=== PATIENT | male | born 1985 | race Caucasian/White ===

== ENCOUNTER 2018-11-02 09:47 | Inpatient (IN) ==
[2018-11-02] MEDS ORDERED: GI Cocktail 40 ML EACH PO ONE (10:14)
[2018-11-02 10:31] LABS: Basophils # 0.1 K/mcL (0.0-0.2); Basophils % 0.5 %; Eosinophils # 0.3 K/mcL (0.0-0.6); Eosinophils % 2.6 %; Hematocrit 48.3 % (37.5-50.1); Hemoglobin 17.7 g/dL (12.9-16.9); Immature Granulocytes % 0.7 % (0-4); Lymphocytes # 2.4 K/mcL (0.6-4.6); Lymphocytes % 24.1 %; Mean Corpuscular HGB Conc 36.6 g/dL (31.6-35.5); Mean Corpuscular Hemoglobin 32.8 pg (28.0-33.3); Mean Corpuscular Volume 89.6 fL (83.0-100.0); Mean Platelet Volume 9.3 fL (9.4-12.4); Monocytes # 0.8 K/mcL (0.0-1.3); Neutrophils # 6.4 K/mcL (1.6-8.9); Platelet Count 306 K/mcL (140-400); Red Blood Count 5.39 M/mcL (4.19-5.50); Red Cell Distribution Width 11.2 % (11.5-14.5); Segmented Neutrophils % 64.1 %
[2018-11-02] MEDS ORDERED: 0.9 % Sodium Chloride 1,000 ML ONE (10:42)
[2018-11-02] MEDS ORDERED: 0.9 % Sodium Chloride 1,000 ML IVC ONE ×2 (11:04→11:13)
[2018-11-02] MEDS ORDERED: Ondansetron 4 MG/2 ML VIAL IVP ONE (11:04)
[2018-11-02 11:11] LABS: Alanine Aminotransferase 28 Units/L (7-52); Albumin 4.2 g/dL (3.5-5.7); Albumin/Globulin Ratio 1.9 (1.1-2.2); Alkaline Phosphatase 66 Units/L (34-104); Aspartate Amino Transferase 30 Units/L (13-39); BUN/Creatinine Ratio 10 (6-26); Bilirubin,Direct 0.1 mg/dL (0.0-0.2); Bilirubin,Indirect 0.6 mg/dL (0.0-1.2); Bilirubin,Total 0.7 mg/dL (0.3-1.0); Blood Urea Nitrogen 7 mg/dL (6-20); Calcium 9.1 mg/dL (8.6-10.3); Carbon Dioxide 26 mEq/L (23-29); Chloride 102 mEq/L (98-107); Globulin 2.2 g/dL (2.4-3.5); Glucose 163 mg/dL (70-105); Lipase 1111 Units/L (11-82); Osmolality,Calculated 296 (280-300); Potassium 3.6 mEq/L (3.5-5.1); Sodium 142 mEq/L (136-145); Total Protein 6.4 g/dL (6.4-8.9); eGFR For African Americans > 60 (> 60); eGFR For Non-African Americans > 60 (> 60)
[2018-11-02] MEDS ORDERED: *HR* FentaNYL (PF) 100 MCG/2 ML VIAL IVP ONE (11:12)
--- NOTE | 2018-11-02 11:23 | Emergency Department Note ---
Disposition Clinical Impression: Pancreatitis Qualifiers: Chronicity: acute Pancreatitis type: alcohol induced Acute pancreatitis complication: unspecified Qualified Code(s): K85.20 - Alcohol induced acute pancreatitis without necrosis or infection Disposition: Admitted As Inpatient Condition: Fair Time of Disposition: 11:14 Abdominal Pain HPI - General Chief Complaint: ED Abdominal Pain Stated Complaint: Ulcer pain Time Seen by Provider: 11/02/18 09:53 Source: patient Limitations: no limitations Nursing Notes Reviewed: Yes Vital Signs Reviewed: Yes - History of Present Illness HPI Narrative: 32-year-old male presents emergency Department with concerns of epigastric abdominal pain. Patient drink a large amount of alcohol last night and woke up with severe abdominal pain. He denies fever, chills, hematochezia, melena, hematemesis. He has a long history of gastric ulcers in the past. He denies history of pain with by mouth intake over the past few days. Pain Scale: 6 - Related Data Home Medications Medication Instructions Recorded Confirmed Allopurinol [Zyloprim 100 MG] 100 mg PO DAILY 11/02/18 11/02/18 Escitalopram [Lexapro] 20 mg PO DAILY 11/02/18 11/02/18 Loperamide HCl [Imodium A-D] 2 mg PO QID PRN 11/02/18 11/02/18 Multivit-Min/Iron/Folic Acid/K 1 each PO DAILY 11/02/18 11/02/18 [Adults Multivitamin Tablet] Previous Rx's Medication Instructions Recorded Lansoprazole [Prevacid] 30 mg PO BIDAC #60 capsule. 11/01/16 Ondansetron ODT [Zofran ODT] 4 mg SL Q4HR PRN #12 tab.rapdis 10/01/18 Sucralfate [Carafate] 1 gm PO QIDAC #60 tablet 10/01/18 Allergies Allergy/AdvReac Type Severity Reaction Status Date / Time No Known Allergies Allergy Verified 10/01/18 15:45 All systems ED: reviewed and negative except as stated. Review of Systems: As Per HPI Abdominal Pain PMH - Past Medical History Medical history: Reports: no medical history Male Surgical History: Reports: no surgical history Psychiatric history: Reports: anxiety, depression, PTSD - Social History Smoking status: Current every day smoker Alcohol use: Reports: heavy Drug use: Reports: none Physical Exam General: Alert and in no acute distress Skin: Warm, dry, intact Head: Normocephalic and atraumatic Neck: Supple, trachea midline and no tenderness Cardiovascular: RRR, no murmur, normal perfusion Respiratory: CTAB, no wheezing, cough, or respiratory distress Musculoskeletal: Normal strength, no tenderness, swelling or deformity GI: Soft, tender to palpation of the epigastrium moderate guarding without evidence of rebound or rigidity. Neuro: A&O to person, place, time and situation. No focal deficits noted on exam Psychiatric: cooperative and appropriate mood and affect. - General Limitations: no limitations General appearance: alert, in no apparent distress Course Vital Signs Temperature 98.1 F 11/02/18 09:49 Pulse Rate 88 11/02/18 09:49 Respiratory Rate 18 11/02/18 09:49 Blood Pressure 136/91 11/02/18 09:49 O2 Sat by Pulse Oximetry 99 11/02/18 09:49 Temperature 98.9 F 11/02/18 12:36 Pulse Rate 70 11/02/18 12:36 Respiratory Rate 16 11/02/18 12:36 Blood Pressure 153/98 11/02/18 12:36 O2 Sat by Pulse Oximetry 98 11/02/18 12:36 Oxygen Delivery Oxygen Delivery Room Air Abdominal Pain - MDM Narrative Medical decision making narrative: Patient has an elevated lipase. He will be admitted for further care and evaluation. He is given IV fluids and pain medication emergency department along with antiemetics. - Medical Records Medical records reviewed: Yes I reviewed the patient's medical records. - Lab Data Lab results reviewed: Yes I reviewed the patient's lab results. Result diagrams: 11/02/18 10:12 11/02/18 10:12 Lab Results 11/02/18 11/02/18 Range/Units 10:12 10:12 WBC 10.0 (4.3-11.1) K/mcL RBC 5.39 (4.19-5.50) M/mcL Hgb 17.7 H (12.9-16.9) g/dL Hct 48.3 (37.5-50.1) % MCV 89.6 (83.0-100.0) fL MCH 32.8 (28.0-33.3) pg MCHC 36.6 H (31.6-35.5) g/dL RDW 11.2 L (11.5-14.5) % Plt Count 306 (140-400) K/mcL MPV 9.3 L (9.4-12.4) fL Immature Gran % 0.7 (0-4) % Seg Neutrophils % 64.1 % Lymphocytes % 24.1 % Monocytes % 8.0 % Eosinophils % 2.6 % Basophils % 0.5 % Neutrophils # 6.4 (1.6-8.9) K/mcL Lymphocytes # 2.4 (0.6-4.6) K/mcL Monocytes # 0.8 (0.0-1.3) K/mcL Eosinophils # 0.3 (0.0-0.6) K/mcL Basophils # 0.1 (0.0-0.2) K/mcL Sodium 142 (136-145) mEq/L Potassium 3.6 (3.5-5.1) mEq/L Chloride 102 (98-107) mEq/L Carbon Dioxide 26 (23-29) mEq/L BUN 7 (6-20) mg/dL Creatinine 0.73 (0.70-1.30) mg/dL Est GFR ( Amer) > 60 (> 60) Est GFR (Non-Af Amer) > 60 (> 60) BUN/Creatinine Ratio 10 (6-26) Glucose 163 H (70-105) mg/dL Calculated Osmolality 296 (280-300) Calcium 9.1 (8.6-10.3) mg/dL Total Bilirubin 0.7 (0.3-1.0) mg/dL Direct Bilirubin 0.1 (0.0-0.2) mg/dL Indirect Bilirubin 0.6 (0.0-1.2) mg/dL AST 30 (13-39) Units/L ALT 28 (7-52) Units/L Alkaline Phosphatase 66 (34-104) Units/L Serum Total Protein 6.4 (6.4-8.9) g/dL Albumin 4.2 (3.5-5.7) g/dL Globulin 2.2 L (2.4-3.5) g/dL Albumin/Globulin Ratio 1.9 (1.1-2.2) Lipase 1111 H (11-82) Units/L - Radiology Data Radiology results reviewed: Yes I reviewed the patient's radiology results.
[2018-11-02 12:33] LABS: Bilirubin,Urine Negative (Negative); Blood,Urine Negative (Negative); Clarity,Urine Clear (Clear); Color,Urine Yellow (Yellow); Glucose,Urine (UA) Normal (Normal); Ketones,Urine Negative (Negative); Leukocyte Esterase,Urine Negative (Negative); Nitrite,Urine Negative (Negative); Protein,Urine Negative (Neg-Trace); Specific Gravity,Urine 1.017 (1.010-1.025); Urobilinogen,Urine Normal (Normal)
--- NOTE | 2018-11-02 12:43 | Internal Med History&Physical ---
Date of Encounter: 11/02/18 Time of Encounter: 08:00 Internal Medicine - H&P: HPI Chief complaint: abdominal pain History of present illness: 32-year-old male presents emergency Department with history of alcohol abuse presented to the hospital with epigastric abdominal pain that started after he drank a large amount of vodka. He denies fever, chills, nausea, vomiting, diarrhea hematochezia, melena, hematemesis, chest pain, shortness of breath, palpitation and lower extremity edema. The patient was evaluated by the ER staff and laboratory data revealed mild deviated elevated lipase, he was admitted for further evaluation and management of acute pancreatitis. Past Med Surg Social Fam HX - Past Medical History Medical history: no medical history Additional medical history: Gout Psychiatric history: anxiety, depression, PTSD - Social History Smoking Status: Current every day smoker Smokeless Tobacco Status: No Alcohol use: heavy Drug use: none Internal Medicine - H&P: Meds Lansoprazole [Prevacid] 30 mg PO BIDAC #60 capsule. 11/01/16 [Rx] Ondansetron ODT [Zofran ODT] 4 mg SL Q4HR PRN #12 tab.rapdis 10/01/18 [Rx] Sucralfate [Carafate] 1 gm PO QIDAC #60 tablet 10/01/18 [Rx] Allopurinol [Zyloprim 100 MG] 100 mg PO DAILY 11/02/18 [History] Escitalopram [Lexapro] 20 mg PO DAILY 11/02/18 [History] Loperamide HCl [Imodium A-D] 2 mg PO QID PRN 11/02/18 [History] Multivit-Min/Iron/Folic Acid/K [Adults Multivitamin Tablet] 1 each PO DAILY 11/02/18 [History] Allergy/AdvReac Type Severity Reaction Status Date / Time No Known Allergies Allergy Verified 10/01/18 15:45 All Systems PM: A 10-system review of systems was performed and is negative for pertinent findings except as documented above in the HPI. - Constitutional Vitals: Temp Pulse Resp BP Pulse Ox 98.9 F 70 16 153/98 98 11/02/18 12:36 11/02/18 12:36 11/02/18 12:36 11/02/18 12:36 11/02/18 12:36 General appearance: Present: A&O X 3 - Head Head exam: Present: atraumatic, normocephalic - Neck Neck exam general surgery: Present: supple, trachea midline. Absent: lymphadenopathy - Respiratory Respiratory exam: Present: CTAB. Absent: accessory muscle use, rales, rhonchi, wheezes - Cardiovascular Cardiovascular exam: Present: RRR, +S1, +S2. Absent: diastolic murmur, gallop, rubs, systolic murmur - GI/Abdominal GI/Abdominal exam: Present: normal bowel sounds, soft, tenderness, no peritoneal signs. Absent: distended - Extremities Exam Extremities exam: Present: warm, radial pulses palpable and symmetrical. Absent: calf tenderness, cyanotic, pedal edema Internal Med - H&P Results - Labs CBC & Chem 7: 11/02/18 10:12 11/02/18 10:12 Labs: Short CBC 11/02/18 Range/Units 10:12 WBC 10.0 (4.3-11.1) K/mcL Hgb 17.7 H (12.9-16.9) g/dL Hct 48.3 (37.5-50.1) % Plt Count 306 (140-400) K/mcL Neutrophils # 6.4 (1.6-8.9) K/mcL BMP 11/02/18 10:12 Sodium 142 Potassium 3.6 Chloride 102 Carbon Dioxide 26 BUN 7 Creatinine 0.73 Glucose 163 H Calcium 9.1 Liver Function 11/02/18 Range/Units 10:12 Total Bilirubin 0.7 (0.3-1.0) mg/dL Direct Bilirubin 0.1 (0.0-0.2) mg/dL AST 30 (13-39) Units/L ALT 28 (7-52) Units/L Alkaline Phosphatase 66 (34-104) Units/L Albumin 4.2 (3.5-5.7) g/dL Urine 11/02/18 Range/Units 12:14 Urine Color Yellow (Yellow) Urine Clarity Clear (Clear) Urine pH 8.0 (5.0-8.0) pH Units Ur Specific [place] 1.017 (1.010-1.025) Urine Protein Negative (Neg-Trace) mg/dL Urine Glucose (UA) Normal (Normal) mg/dL - Impressions ITS Impressions Chest X-Ray 11/02/18 10:14 IMPRESSION: No acute cardiopulmonary process. D/ / 11/02/2018 11:16:39 Chad Cobb MD / [facility] Interpreting Provider: Chad Cobb MD - Assessment and Plan (1) Pancreatitis Current Visit: Yes Status: Acute Assessment and plan: the patient presented with severe abdominal pain after consuming a large amount of blood, last night, laboratory data is evidence for increased lipase most likely secondary to acute Pancreatitis PLAN: - NPO apart from meds - IVF - CBCD, BMP in AM - Zofran (ondansetron) PRN - CT scan of the abdomen Qualifiers: Chronicity: acute Pancreatitis type: alcohol induced Acute pancreatitis complication: unspecified Qualified Code(s): K85.20 - Alcohol induced acute pancreatitis without necrosis or infection (2) Alcohol abuse Current Visit: Yes Status: Acute Assessment and plan: we'll start the patient on CIWA protocol. - Time Spent With Patient Total time spent is greater than 50% in coordination of care (as documented) at patient's floor/unit and/or counseling patient:
[2018-11-02] MEDS ORDERED: Ondansetron 4 MG/2 ML VIAL IVP PRN (13:07)
[2018-11-02] MEDS ORDERED: traMADol 50 MG TABLET PO PRN (13:07)
[2018-11-02] MEDS ORDERED: Acetaminophen 325 MG TABLET PO PRN (13:07)
[2018-11-02] MEDS ORDERED: Naloxone 0.4 MG/ML INJ IVP PRN (13:07)
[2018-11-02] MEDS: 0.9 % Sodium Chloride 1,000 ML IVC SCH ×2 (13:20→20:42)
[2018-11-02] MEDS: Pantoprazole 40 MG VIAL IVP SCH (17:29)
[2018-11-02] MEDS ORDERED: *HR* LORazepam 2 MG/ML VIAL IVP PRN ×3 (17:39)
[2018-11-02] MEDS: *HR* OxyCODONE Immed Rel 5 MG TABLET PO PRN (20:40)
[2018-11-02] MEDS: Sucralfate 1 GM TABLET PO SCH (22:16)
[2018-11-03] MEDS: *HR* OxyCODONE Immed Rel 5 MG TABLET PO PRN (01:31)
[2018-11-03] MEDS ORDERED: Isovue-370 500 ML BOTTLE IVP ONE (05:24)
[2018-11-03] MEDS: Pantoprazole 40 MG VIAL IVP SCH ×2 (06:49→16:57)
[2018-11-03 06:58] LABS: Basophils # 0.1 K/mcL (0.0-0.2); Basophils % 0.3 %; Eosinophils # 0.2 K/mcL (0.0-0.6); Eosinophils % 1.2 %; Hematocrit 44.2 % (37.5-50.1); Hemoglobin 15.8 g/dL (12.9-16.9); Immature Granulocytes % 0.4 % (0-4); Lymphocytes # 2.4 K/mcL (0.6-4.6); Lymphocytes % 16.6 %; Mean Corpuscular HGB Conc 35.7 g/dL (31.6-35.5); Mean Corpuscular Hemoglobin 32.4 pg (28.0-33.3); Mean Corpuscular Volume 90.6 fL (83.0-100.0); Mean Platelet Volume 9.7 fL (9.4-12.4); Monocytes # 1.3 K/mcL (0.0-1.3); Monocytes % 9.4 %; Neutrophils # 10.3 K/mcL (1.6-8.9); Platelet Count 277 K/mcL (140-400); Red Blood Count 4.88 M/mcL (4.19-5.50); Red Cell Distribution Width 11.2 % (11.5-14.5); Segmented Neutrophils % 72.1 %; White Blood Count 14.3 K/mcL (4.3-11.1)
[2018-11-03 07:04] LABS: INR 1.1; Prothrombin Time 12.6 Seconds (9.4-12.1)
[2018-11-03 07:07] LABS: Activated Partial Thrombo Time 28.9 Seconds (26.0-36.0)
[2018-11-03 07:20] LABS: Alanine Aminotransferase 20 Units/L (7-52); Albumin 3.9 g/dL (3.5-5.7); Albumin/Globulin Ratio 1.9 (1.1-2.2); Alkaline Phosphatase 59 Units/L (34-104); Amylase 73 Units/L (29-103); Aspartate Amino Transferase 19 Units/L (13-39); BUN/Creatinine Ratio 9 (6-26); Bilirubin,Total 0.9 mg/dL (0.3-1.0); Blood Urea Nitrogen 6 mg/dL (6-20); Calcium 8.7 mg/dL (8.6-10.3); Carbon Dioxide 26 mEq/L (23-29); Chloride 101 mEq/L (98-107); Chol/HDL Ratio 3.7 (0-4.9); Cholesterol 121 mg/dL (< 200); Globulin 2.1 g/dL (2.4-3.5); Glucose 102 mg/dL (70-105); HDL Cholesterol 33 mg/dL (40-59); LDL Cholesterol,Calculated 35 mg/dL (0-99); Lipase 287 Units/L (11-82); Magnesium 1.4 mg/dL (1.6-2.6); Osmolality,Calculated 286 (280-300); Phosphorous 2.9 mg/dL (2.7-4.5); Potassium 3.3 mEq/L (3.5-5.1); Sodium 139 mEq/L (136-145); Triglycerides 264 mg/dL (< 150); eGFR For African Americans > 60 (> 60); eGFR For Non-African Americans > 60 (> 60)
[2018-11-03 07:31] LABS: Estimated Average Glucose 97 mg/dl
[2018-11-03] MEDS: Thiamine (B-1) 100 MG TABLET PO SCH (08:02)
[2018-11-03] MEDS: Multivit/Ca/Min/Fe/FA 1 TAB TABLET PO SCH (08:02)
[2018-11-03] MEDS: Sucralfate 1 GM TABLET PO SCH ×4 (08:02→21:10)
[2018-11-03] MEDS: Vitamin B Complex/Vit C/Vit E 1 EACH TABLET PO SCH (08:02)
[2018-11-03] MEDS: Folic Acid 1 MG TABLET PO SCH (08:02)
--- NOTE | 2018-11-03 09:14 | Internal Med Progress Note ---
<Jaron Shanks - Last Filed: 11/03/18 15:52> Hospitalist Progress Note - Encounter Date of Encounter: 11/03/18 - Exam Vitals: Temp Pulse Resp BP Pulse Ox 98.1 F 73 15 133/83 98 11/03/18 14:49 11/03/18 14:49 11/03/18 14:49 11/03/18 14:49 11/03/18 14:49 - Assessment and Plan (1) Pancreatitis Current Visit: Yes Status: Acute (2) Alcohol abuse Current Visit: Yes Status: Acute (3) Tobacco abuse Current Visit: Yes Status: Chronic - Time Spent with Patient Total time spent is greater than 50% in coordination of care (as documented) at patient's floor/unit and/or counseling patient: Internal Medicine: Result - Labs CBC & Chem 7: 11/03/18 05:37 11/03/18 05:37 Labs: Short CBC 11/03/18 Range/Units 05:37 WBC 14.3 H (4.3-11.1) K/mcL Hgb 15.8 D (12.9-16.9) g/dL Hct 44.2 (37.5-50.1) % Plt Count 277 (140-400) K/mcL Neutrophils # 10.3 H (1.6-8.9) K/mcL BMP 11/03/18 05:37 Sodium 139 Potassium 3.3 L Chloride 101 Carbon Dioxide 26 BUN 6 Creatinine 0.68 L Glucose 102 Calcium 8.7 Liver Function 11/03/18 Range/Units 05:37 Total Bilirubin 0.9 (0.3-1.0) mg/dL AST 19 (13-39) Units/L ALT 20 (7-52) Units/L Alkaline Phosphatase 59 (34-104) Units/L Albumin 3.9 (3.5-5.7) g/dL - ABG Interpretation ABG results: PT/INR, D-dimer PT 12.6 Seconds (9.4-12.1) H 11/03/18 05:37 - Impressions Impressions Abdomen CT 11/03/18 09:30 IMPRESSION: CT findings of acute pancreatitis. Fatty liver. Right renal cortical cyst. D/ / 11/03/2018 09:48:41 Martin Lomax MD / [facility] Interpreting Provider: Martin Lomax MD Consult Discharge Plan - Plan [facility]errals: [facility] [Primary Care Provider[facility] - - Attending Attestation I examined this patient and my medical decision-making was reviewed with the Resident Physician 11/03/18. I agree with the documented findings, disposition and treatment plan as described except to the extent set forth below. Mr Vallejo is currently hospitalized for acute pancreatitis. He remains moderate to high risk due to potential for worsening clinical status. Mr Vallejo is tolerating liquid diet. He has minimal pain at this time. No fever or chills. No nausea or vomiting at this time. Exam - no tachycardia. Lungs clear. Minimal abdominal tenderness. Plan continue pain control. Advance diet. CIWA. Alcohol cessation. <Radha Vigil I - Last Filed: 11/03/18 18:51> Hospitalist Progress Note - Encounter Date of Encounter: 11/03/18 Time of Encounter: 08:35 - Subjective Interval History: 32-year-old male presents emergency Department with history of alcohol abuse presented to the hospital with epigastric abdominal pain that started after he drank a large amount of vodka. he was admitted for further evaluation and man agement of acute pancreatitis due to high lipase which was 1111 , CXR was negative and he was sent for CT which later shows pancreatic edema and peripancreatic inflamation today the patient feels better He denies abdominal pain , fever, chills, nausea, vomiting, diarrhea chest pain, shortness of breath, palpitation and lower extremity edema. - Exam Vitals: Temp Pulse Resp BP Pulse Ox 98.2 F 80 15 151/92 98 11/03/18 07:02 11/03/18 07:02 11/03/18 07:02 11/03/18 07:02 11/03/18 07:02 Exam: Gen: Vitals noted. No acute distress. Eyes: anicteric sclerae, moist conjunctivae HEENT: Atraumatic; oropharynx clear with moist mucous membranes and no mucosal ulcerations Neck: Trachea midline; supple Cardiac: RRR, no murmur, +S1/S2 Pulmonary:, no wheezes, rales or rhonchi, equal chest expansion Abdomen: soft, nontender, no guarding. No masses or hepatosplenomegaly MSK: ROM intact, no joint swelling noted Extremities: no BLE edema, nontender calf, no cyanosis or clubbing Skin: Normal temperature, turgor and texture; no rash, ulcers or subcutaneous no dules Neuro: moves all extremities, no focal deficits. Psych: Appropriate mood and behavior. A&Ox3 - Assessment and Plan (1) Pancreatitis Current Visit: Yes Status: Acute Assessment and Plan: Assessment and plan: the patient presented with severe abdominal pain after consuming a large amount of blood, last night, laboratory data is evidence for increased lipase to 1111 most likely secondary to acute Pancreatitis , CT showes pancreatic edema and peripancreatic inflamation , patient is feeling well today, we stoped IVF and started him om oral liquid diet PLAN: - start liquid diet as tolerated , change to IVF if deteriorated - Zofran (ondansetron) PRN - pantoprazole 40 mg IVP -check BMP tomorow morning (2) Hypokalemia Current Visit: Yes Status: Acute Assessment and Plan: potassium level was 3.3 , we gave 40 meq PO once check BMP tomorrow again potline monitor due to NE risk (3) Hypomagnesemia Current Visit: Yes Status: Acute Assessment and Plan: -Mg level was 1.4 , we started him on 4gm -repeat Mg level tomorrow -look for cardiac abnormality and neurological symptoms (4) Alcohol abuse Current Visit: Yes Status: Acute Assessment and Plan: patient was put on CIWA protocol to avoid seizure (CIWA score is 0) DVT Prophylaxis: heparin 5000 SQ - Time Spent with Patient Total time spent is greater than 50% in coordination of care (as documented) at patient's floor/unit and/or counseling patient: Internal Medicine: Result - Labs CBC & Chem 7: 11/03/18 05:37 11/03/18 05:37 Labs: Short CBC 11/02/18 11/03/18 Range/Units 10:12 05:37 WBC 10.0 14.3 H (4.3-11.1) K/mcL Hgb 17.7 H 15.8 D (12.9-16.9) g/dL Hct 48.3 44.2 (37.5-50.1) % Plt Count 306 277 (140-400) K/mcL Neutrophils # 6.4 10.3 H (1.6-8.9) K/mcL BMP 11/02/18 11/03/18 10:12 05:37 Sodium 142 139 Potassium 3.6 3.3 L Chloride 102 101 Carbon Dioxide 26 26 BUN 7 6 Creatinine 0.73 0.68 L Glucose 163 H 102 Calcium 9.1 8.7 Liver Function 11/02/18 11/03/18 Range/Units 10:12 05:37 Total Bilirubin 0.7 0.9 (0.3-1.0) mg/dL Direct Bilirubin 0.1 (0.0-0.2) mg/dL AST 30 19 (13-39) Units/L ALT 28 20 (7-52) Units/L Alkaline Phosphatase 66 59 (34-104) Units/L Albumin 4.2 3.9 (3.5-5.7) g/dL Urine 11/02/18 Range/Units 12:14 Urine Color Yellow (Yellow) Urine Clarity Clear (Clear) Urine pH 8.0 (5.0-8.0) pH Units Ur Specific [place] 1.017 (1.010-1.025) Urine Protein Negative (Neg-Trace) mg/dL Urine Glucose (UA) Normal (Normal) mg/dL - ABG Interpretation ABG results: PT/INR, D-dimer PT 12.6 Seconds (9.4-12.1) H 11/03/18 05:37 - Impressions Impressions Chest X-Ray 11/02/18 10:14 IMPRESSION: No acute cardiopulmonary process. D/ / 11/02/2018 11:16:39 Chad Cobb MD / [facility] Interpreting Provider: Chda Cobb MD <Jaron Shanks A - Last Filed: 11/03/18 15:52> (1) Pancreatitis Qualifiers: Chronicity: acute Pancreatitis type: alcohol induced Acute pancreatitis complication: no infection or necrosis Qualified Code(s): K85.20 - Alcohol induced acute pancreatitis without necrosis or infection <Radha Vigil I - Last Filed: 11/03/18 18:51> (1) Pancreatitis Qualifiers: Chronicity: acute Pancreatitis type: alcohol induced Acute pancreatitis complication: no infection or necrosis Qualified Code(s): K85.20 - Alcohol induced acute pancreatitis without necrosis or infection
[2018-11-03] MEDS ORDERED: Magnesium Oxide 400 MG TABLET PO SCH (10:45)
[2018-11-03] MEDS: *HR* Heparin 5,000 UNIT/ML VIAL SQ SCH ×2 (12:55→21:10)
[2018-11-04] MEDS ORDERED: Nicotine 2 MG GUM BC PRN (01:43)
[2018-11-04] MEDS: *HR* Heparin 5,000 UNIT/ML VIAL SQ SCH ×2 (05:54→15:13)
[2018-11-04] MEDS: Pantoprazole 40 MG VIAL IVP SCH (05:54)
[2018-11-04] MEDS: Vitamin B Complex/Vit C/Vit E 1 EACH TABLET PO SCH (08:05)
[2018-11-04] MEDS: Folic Acid 1 MG TABLET PO SCH (08:05)
[2018-11-04] MEDS: Thiamine (B-1) 100 MG TABLET PO SCH (08:05)
[2018-11-04] MEDS: Multivit/Ca/Min/Fe/FA 1 TAB TABLET PO SCH (08:05)
[2018-11-04] MEDS: Sucralfate 1 GM TABLET PO SCH ×2 (08:05→11:33)
[2018-11-04 11:21] LABS: Basophils # 0.1 K/mcL (0.0-0.2); Basophils % 0.7 %; Eosinophils # 0.5 K/mcL (0.0-0.6); Eosinophils % 6.8 %; Hematocrit 43.8 % (37.5-50.1); Hemoglobin 15.7 g/dL (12.9-16.9); Immature Granulocytes % 0.3 % (0-4); Lymphocytes % 27.8 %; Mean Corpuscular HGB Conc 35.8 g/dL (31.6-35.5); Mean Corpuscular Hemoglobin 33.1 pg (28.0-33.3); Mean Corpuscular Volume 92.2 fL (83.0-100.0); Mean Platelet Volume 9.4 fL (9.4-12.4); Monocytes # 0.6 K/mcL (0.0-1.3); Monocytes % 7.5 %; Neutrophils # 4.2 K/mcL (1.6-8.9); Platelet Count 254 K/mcL (140-400); Red Blood Count 4.75 M/mcL (4.19-5.50); Red Cell Distribution Width 11.2 % (11.5-14.5); Segmented Neutrophils % 56.9 %; White Blood Count 7.4 K/mcL (4.3-11.1)
[2018-11-04 11:31] LABS: Magnesium 1.9 mg/dL (1.6-2.6); Potassium 3.5 mEq/L (3.5-5.1)
--- NOTE | 2018-11-04 13:30 | Discharge Summary ---
<Radha Vigil I - Last Filed: 11/04/18 15:59> - NOTES TO OUTPATIENT PROVIDER Notes to Outpatient Provider: Patient was admitted due to severe abdominal pain after having large amount of alcohol diagnosis of acute pancreatitis was made, Orders not resulted at time of discharge: Pending orders 11/02/18 10:14 ECG 12 lead ECG [ECG] Stat Date of Encounter: 11/04/18 Time of Encounter: 10:30 - Discharge Diagnosis (1) Pancreatitis Priority: Primary Status: Acute Qualifiers: Chronicity: acute Pancreatitis type: alcohol induced Acute pancreatitis complication: no infection or necrosis Qualified Code(s): K85.20 - Alcohol induced acute pancreatitis without necrosis or infection (2) Hypokalemia Priority: Secondary Status: Acute (3) Hypomagnesemia Priority: Secondary Status: Acute (4) Alcohol abuse Priority: Secondary Status: Acute Hospital course: Mr. Vallejo is a 32 year old male with a known history of alcohol abuse . Was admitted due to severe abdominal pain after ingestion of a large amount of alcohol and diagnosis of acute pancreatitis was made. CT shows pancreatic inflammation and pancreatic edema indicative of acute pancreatitis . Blood lipase level was 1100 , patient was on nothing by mouth then restarted him on liquid diet as tolerated and then soft diet and he tolerated soft diet well. He has no nausea no vomiting no fever no abdominal pain . Abdomen is soft and non tender. He was on CIWA protocol to prevent alcohol withdrawal , and consultation to stop alcohol was made with the patient , the patient was instructed to have soft diet for a few days and to follow-up with his primary care provider. He was instructed to come back to the hospital whenever he developed abdominal pain. Discharge discussed with: patient - Time Spent with Patient Total time spent providing and/or coordinating discharge services: Time spent: Greater than 30 minutes - Discharge Medications Prescriptions: Continued Loperamide HCl [Imodium A-D] 2 mg PO DAILY PRN PRN Reason: Loose Stool Allopurinol [Zyloprim 100 MG] 100 mg PO DAILY Escitalopram [Lexapro] 20 mg PO DAILY Lansoprazole [Prevacid] 15 mg PO DAILY Sucralfate [Carafate] 1 gm PO DAILY Multivitamin [Daily Multiple Vitamin] 1 tab PO DAILY Home Medications: Allopurinol [Zyloprim 100 MG] 100 mg PO DAILY 11/02/18 [History] Escitalopram [Lexapro] 20 mg PO DAILY 11/02/18 [History] Loperamide HCl [Imodium A-D] 2 mg PO DAILY PRN 11/02/18 [History] Lansoprazole [Prevacid] 15 mg PO DAILY 11/03/18 [History] Multivitamin [Daily Multiple Vitamin] 1 tab PO DAILY 11/03/18 [History] Sucralfate [Carafate] 1 gm PO DAILY 11/03/18 [History] Allergies/Adverse Reactions: Allergy/AdvReac Type Severity Reaction Status Date / Time No Known Allergies Allergy Verified 11/03/18 15:09 Date of admission: 11/02/18 17:23 [facility] care physician[facility] Discharging clinician: Jaron Shanks Anticipated date of discharge: 11/04/18 - Constitutional Vitals: Temp Pulse Resp BP Pulse Ox 98.3 F 74 15 118/80 98 11/04/18 10:24 11/04/18 10:24 11/04/18 10:24 11/04/18 10:24 11/04/18 10:24 General appearance: Present: A&O X 3, pleasant, no acute distress Exam: . - Head Head exam: Present: atraumatic, normal inspection - ENT ENT exam: Present: mucous membranes moist, normal exam - Neck Neck exam general surgery: Present: full ROM, supple - Respiratory Respiratory exam: Present: CTAB - Cardiovascular Cardiovascular exam: Present: +S1, +S2 - GI/Abdominal GI/Abdominal exam: Present: normal bowel sounds, soft - Extremities Exam Extremities exam: Present: full ROM, normal inspection - Neurological Exam Neurological exam: Present: alert, oriented X3 - Psychiatric Psychiatric exam: Present: normal affect - Skin Skin exam: Present: intact - Patient Status Disposition: Home, Self-Care Condition: Good Functional capacity at discharge: independent ambulation Overall status at discharge: patient is back to baseline - Discharge Instructions Instructions: Pancreatitis (GEN), Abuse of Alcohol (GEN) Follow [facility] With: [facility] [Primary Care Provider] - (Please call to set up follow up appointment with your PCP within 2 weeks) Forms: Work/School Release Additional Instructions: followup with primary care provider stop alcohol intake soft diet as tolerated for few days then advanced to normal diet - Diet and Activity Activity: increase activity as tolerated Diet: advance to your usual diet <Jaron Shanks - Last Filed: 11/04/18 16:31> Orders not resulted at time of discharge: Pending orders 11/02/18 10:14 ECG 12 lead ECG [ECG] Stat Date of Encounter: 11/04/18 - Discharge Diagnosis (1) Pancreatitis Status: Acute Qualifiers: Chronicity: acute Pancreatitis type: alcohol induced Acute pancreatitis complication: no infection or necrosis Qualified Code(s): K85.20 - Alcohol induced acute pancreatitis without necrosis or infection (2) Alcohol abuse Status: Acute (3) Tobacco abuse Priority: Secondary Status: Chronic Hospital course: Mr. Vallejo is a 32 year old male - Time Spent with Patient Total time spent providing and/or coordinating discharge services: Date of admission: 11/02/18 17:23 Primary care physician: PCP ID - Constitutional Vitals: Temp Pulse Resp BP Pulse Ox 97.8 F 64 15 128/85 99 11/04/18 14:53 11/04/18 14:53 11/04/18 14:53 11/04/18 14:53 11/04/18 14:53 - Attending Attestation I examined this patient and my medical decision-making was reviewed with the Resident Physician on 11/04/18. I agree with the documented findings, disposition and treatment plan as described except to the extent set forth below. Mr Vallejo has been admitted for acute pancreatitis. He improved with bowel rest and pain control. Today he is feeling better and his abdomen is nontender. He is tolerating a diet. He is ready for discharge home. Abd soft. Heart reg. D/C today. D/C time 34min
[2018-11-04 14:54] VITALS: BP 128/85
== END 2018-11-04 16:01 | disposition home or self-care (01) | DRG 440 ==
LOC: 3ANU 09:47 → EMEROOARM 09:47 → 3ANU 12:18 → SUATTDRO 17:23
PROVIDERS: ADMIT Internal Medicine Nephrology; ATTEND Internal Medicine

== ENCOUNTER 2019-04-20 13:59 | Inpatient (IN) ==
[2019-04-20] MEDS ORDERED: Ondansetron 4 MG/2 ML VIAL IVP ONE (14:11)
[2019-04-20] MEDS ORDERED: 0.9 % Sodium Chloride 1,000 ML IVC ONE (14:11)
[2019-04-20] MEDS ORDERED: Morphine Sulfate 2 MG/ML SYRINGE IVP ONE (14:11)
[2019-04-20 14:38] LABS: Basophils % 0.2 %; Eosinophils # 0.1 K/mcL (0.0-0.6); Eosinophils % 0.3 %; Hematocrit 50.5 % (37.5-50.1); Hemoglobin 18.4 g/dL (12.9-16.9); Immature Granulocytes % 0.5 % (0-4); Lymphocytes # 1.8 K/mcL (0.6-4.6); Lymphocytes % 9.8 %; Mean Corpuscular HGB Conc 36.4 g/dL (31.6-35.5); Mean Corpuscular Hemoglobin 30.8 pg (28.0-33.3); Mean Corpuscular Volume 84.4 fL (83.0-100.0); Mean Platelet Volume 9.7 fL (9.4-12.4); Monocytes # 1.6 K/mcL (0.0-1.3); Monocytes % 8.4 %; Neutrophils # 14.9 K/mcL (1.6-8.9); Platelet Count 331 K/mcL (140-400); Red Blood Count 5.98 M/mcL (4.19-5.50); Red Cell Distribution Width 12.6 % (11.5-14.5); Segmented Neutrophils % 80.8 %; White Blood Count 18.4 K/mcL (4.3-11.1)
[2019-04-20 14:39] LABS: INR 1.3; Prothrombin Time 14.2 Seconds (9.4-12.1)
[2019-04-20 15:12] LABS: Alanine Aminotransferase 11 Units/L (7-52); Albumin/Globulin Ratio 2.2 (1.1-2.2); Alkaline Phosphatase 84 Units/L (34-104); Amylase 228 Units/L (29-103); Aspartate Amino Transferase 13 Units/L (13-39); BUN/Creatinine Ratio 19 (6-26); Bilirubin,Direct 0.2 mg/dL (0.0-0.2); Bilirubin,Indirect 0.9 mg/dL (0.0-1.0); Bilirubin,Total 1.1 mg/dL (0.3-1.0); Blood Urea Nitrogen 21 mg/dL (6-20); Calcium 10.6 mg/dL (8.6-10.3); Carbon Dioxide 32 mEq/L (23-29); Chloride 91 mEq/L (98-107); Globulin 2.3 g/dL (2.4-3.5); Glucose 199 mg/dL (70-105); Lipase 1322 Units/L (11-82); Osmolality,Calculated 297 (280-300); Potassium 3.4 mEq/L (3.5-5.1); Sodium 139 mEq/L (136-145); Total Protein 7.3 g/dL (6.4-8.9); eGFR For African Americans > 60 (> 60); eGFR For Non-African Americans > 60 (> 60)
[2019-04-20] MEDS ORDERED: Isovue-370 500 ML BOTTLE IVP ONE (15:16)
[2019-04-20] MEDS ORDERED: Naloxone 0.4 MG/ML INJ IVP PRN (15:27)
[2019-04-20] MEDS ORDERED: *HR* Promethazine 25 MG/ML VIAL IVP PRN (15:27)
[2019-04-20] MEDS ORDERED: 0.9 % Sodium Chloride 1,000 ML IVC SCH (15:30)
[2019-04-20 15:53] LABS: Ethanol < 10 mg/dL (Less than 10)
[2019-04-20] MEDS: 0.9 % Sodium Chloride 1,000 ML IVC SCH ×2 (18:56→19:56)
[2019-04-20] MEDS: 0.9 % Sodium Chloride w KCl 40 MEQ/1,000 ML MLS IVC SCH (18:58)
[2019-04-21] MEDS: 0.9 % Sodium Chloride w KCl 40 MEQ/1,000 ML MLS IVC SCH ×2 (05:15→10:22)
[2019-04-21] MEDS: Ondansetron 4 MG/2 ML VIAL IVP PRN ×2 (05:16→16:48)
[2019-04-21 06:33] LABS: Basophils % 0.3 %; Eosinophils # 0.2 K/mcL (0.0-0.6); Eosinophils % 1.8 %; Hematocrit 45.3 % (37.5-50.1); Immature Granulocytes % 0.2 % (0-4); Lymphocytes # 2.7 K/mcL (0.6-4.6); Lymphocytes % 21.6 %; Mean Corpuscular HGB Conc 34.4 g/dL (31.6-35.5); Mean Corpuscular Hemoglobin 30.6 pg (28.0-33.3); Mean Platelet Volume 10.1 fL (9.4-12.4); Monocytes % 8.4 %; Neutrophils # 8.4 K/mcL (1.6-8.9); Platelet Count 252 K/mcL (140-400); Red Blood Count 5.09 M/mcL (4.19-5.50); Red Cell Distribution Width 12.4 % (11.5-14.5); Segmented Neutrophils % 67.7 %; White Blood Count 12.4 K/mcL (4.3-11.1)
[2019-04-21 06:38] LABS: Hemoglobin 15.6 g/dL (12.9-16.9)
[2019-04-21 06:59] LABS: Alanine Aminotransferase 8 Units/L (7-52); Albumin 4.1 g/dL (3.5-5.7); Alkaline Phosphatase 68 Units/L (34-104); Aspartate Amino Transferase 11 Units/L (13-39); BUN/Creatinine Ratio 17 (6-26); Bilirubin,Total 1.1 mg/dL (0.3-1.0); Blood Urea Nitrogen 16 mg/dL (6-20); Calcium 9.6 mg/dL (8.6-10.3); Carbon Dioxide 29 mEq/L (23-29); Chloride 100 mEq/L (98-107); Globulin 2.1 g/dL (2.4-3.5); Glucose 101 mg/dL (70-105); Magnesium 2.1 mg/dL (1.6-2.6); Osmolality,Calculated 295 (280-300); Sodium 142 mEq/L (136-145); Total Protein 6.2 g/dL (6.4-8.9); eGFR For African Americans > 60 (> 60); eGFR For Non-African Americans > 60 (> 60)
[2019-04-21] MEDS: Sucralfate 1 GM TABLET PO SCH ×2 (08:51→13:52)
[2019-04-21] MEDS: Pantoprazole 40 MG VIAL IVP SCH (08:51)
[2019-04-21] MEDS: Nicotine 21 MG PATCH.TD24 TD SCH (08:51)
[2019-04-21 11:38] LABS: Bilirubin,Urine Negative (Negative); Blood,Urine Negative (Negative); Clarity,Urine Turbid (Clear); Color,Urine Yellow (Yellow); Glucose,Urine (UA) Normal (Normal); Ketones,Urine 15 mg/dL (Negative); Leukocyte Esterase,Urine Negative (Negative); Nitrite,Urine Negative (Negative); PH,Urine 7.5 pH Units (5.0-8.0); Protein,Urine 30 mg/dL (Neg-Trace); Specific Gravity,Urine 1.027 (1.010-1.025); Urobilinogen,Urine Normal (Normal)
[2019-04-21 11:40] LABS: Bacteria,Urine None Seen per hpf (None-Few); Hyaline Casts,Urine None Seen per lpf (None-Few); RBC,Urine 0-3 per hpf (0-3); Squamous Epithelial Cell,Urine Moderate per lpf (None-Few); WBC,Urine 0-3 per hpf (0-3)
[2019-04-21] MEDS ORDERED: *HR* HYDROcodone/Acet 5/325 mg TABLET PO PRN (14:09)
[2019-04-21] MEDS ORDERED: Acetaminophen 325 MG TABLET PO PRN (14:09)
[2019-04-21] MEDS: 0.9 % Sodium Chloride 1,000 ML IVC SCH (16:47)
[2019-04-22] MEDS: 0.9 % Sodium Chloride 1,000 ML IVC SCH ×4 (00:05→22:50)
[2019-04-22] MEDS: Ondansetron 4 MG/2 ML VIAL IVP PRN (00:31)
[2019-04-22] MEDS: Pantoprazole 40 MG VIAL IVP SCH (08:20)
[2019-04-22] MEDS: Nicotine 21 MG PATCH.TD24 TD SCH (08:35)
[2019-04-22] MEDS: Sucralfate 1 GM TABLET PO SCH (08:35)
[2019-04-22 09:56] LABS: Hematocrit 42.3 % (37.5-50.1); Hemoglobin 14.7 g/dL (12.9-16.9); Mean Corpuscular HGB Conc 34.8 g/dL (31.6-35.5); Mean Corpuscular Hemoglobin 30.8 pg (28.0-33.3); Mean Corpuscular Volume 88.5 fL (83.0-100.0); Mean Platelet Volume 9.9 fL (9.4-12.4); Platelet Count 239 K/mcL (140-400); Red Blood Count 4.78 M/mcL (4.19-5.50); Red Cell Distribution Width 12.1 % (11.5-14.5); White Blood Count 11.7 K/mcL (4.3-11.1)
[2019-04-22 10:13] LABS: Alanine Aminotransferase 8 Units/L (7-52); Albumin/Globulin Ratio 2.2 (1.1-2.2); Alkaline Phosphatase 60 Units/L (34-104); Aspartate Amino Transferase 10 Units/L (13-39); BUN/Creatinine Ratio 17 (6-26); Bilirubin,Total 0.9 mg/dL (0.3-1.0); Blood Urea Nitrogen 14 mg/dL (6-20); Calcium 9.3 mg/dL (8.6-10.3); Carbon Dioxide 30 mEq/L (23-29); Chloride 102 mEq/L (98-107); Globulin 1.8 g/dL (2.4-3.5); Glucose 181 mg/dL (70-105); Osmolality,Calculated 303 (280-300); Potassium 3.9 mEq/L (3.5-5.1); Sodium 144 mEq/L (136-145); Total Protein 5.8 g/dL (6.4-8.9); eGFR For African Americans > 60 (> 60); eGFR For Non-African Americans > 60 (> 60)
[2019-04-23] MEDS: 0.9 % Sodium Chloride 1,000 ML IVC SCH ×3 (00:06→18:22)
[2019-04-23] MEDS: Ondansetron 4 MG/2 ML VIAL IVP PRN (08:19)
[2019-04-23] MEDS: Pantoprazole 40 MG VIAL IVP SCH ×2 (08:19→18:23)
[2019-04-23] MEDS: Sucralfate 1 GM TABLET PO SCH (08:19)
[2019-04-23] MEDS: Nicotine 21 MG PATCH.TD24 TD SCH (08:20)
[2019-04-23] MEDS ORDERED: Prochlorperazine 10 MG/2 ML VIAL IVP ONE (12:39)
[2019-04-23] MEDS: Morphine Sulfate 2 MG/ML SYRINGE IVP PRN ×2 (13:25→19:59)
[2019-04-23 14:50] LABS: Basophils % 0.2 %; Eosinophils # 0.2 K/mcL (0.0-0.6); Eosinophils % 1.7 %; Hematocrit 39.7 % (37.5-50.1); Hemoglobin 14.5 g/dL (12.9-16.9); Immature Granulocytes % 0.5 % (0-4); Lymphocytes # 1.6 K/mcL (0.6-4.6); Lymphocytes % 12.7 %; Mean Corpuscular HGB Conc 36.5 g/dL (31.6-35.5); Mean Corpuscular Hemoglobin 30.9 pg (28.0-33.3); Mean Corpuscular Volume 84.5 fL (83.0-100.0); Monocytes # 1.1 K/mcL (0.0-1.3); Neutrophils # 9.7 K/mcL (1.6-8.9); Platelet Count 229 K/mcL (140-400); Segmented Neutrophils % 75.9 %; White Blood Count 12.7 K/mcL (4.3-11.1)
[2019-04-23] MEDS ORDERED: Isovue-370 500 ML BOTTLE IVP ONE (15:20)
[2019-04-23 15:29] LABS: Alanine Aminotransferase 9 Units/L (7-52); Albumin 3.5 g/dL (3.5-5.7); Albumin/Globulin Ratio 2.1 (1.1-2.2); Alkaline Phosphatase 54 Units/L (34-104); Aspartate Amino Transferase 13 Units/L (13-39); BUN/Creatinine Ratio 12 (6-26); Bilirubin,Total 1.2 mg/dL (0.3-1.0); Blood Urea Nitrogen 8 mg/dL (6-20); Calcium 8.6 mg/dL (8.6-10.3); Carbon Dioxide 26 mEq/L (23-29); Chloride 101 mEq/L (98-107); Globulin 1.7 g/dL (2.4-3.5); Glucose 117 mg/dL (70-105); Lipase 505 Units/L (11-82); Osmolality,Calculated 281 (280-300); Potassium 3.4 mEq/L (3.5-5.1); Sodium 136 mEq/L (136-145); Total Protein 5.2 g/dL (6.4-8.9); eGFR For African Americans > 60 (> 60); eGFR For Non-African Americans > 60 (> 60)
[2019-04-23] MEDS ORDERED: Potassium Chloride Elixir 20 MEQ/15 ML UDC PO ONE (16:11)
[2019-04-24] MEDS: 0.9 % Sodium Chloride 1,000 ML IVC SCH ×2 (01:43→09:07)
[2019-04-24] MEDS: Pantoprazole 40 MG VIAL IVP SCH (04:41)
[2019-04-24] MEDS: Morphine Sulfate 2 MG/ML SYRINGE IVP PRN (04:47)
[2019-04-24] MEDS: Sucralfate 1 GM TABLET PO SCH (09:07)
[2019-04-24 09:08] LABS: Basophils % 0.3 %; Eosinophils # 0.4 K/mcL (0.0-0.6); Eosinophils % 3.4 %; Hematocrit 39.2 % (37.5-50.1); Hemoglobin 14.4 g/dL (12.9-16.9); Immature Granulocytes % 0.4 % (0-4); Lymphocytes # 2.4 K/mcL (0.6-4.6); Mean Corpuscular HGB Conc 36.7 g/dL (31.6-35.5); Mean Corpuscular Hemoglobin 30.8 pg (28.0-33.3); Mean Corpuscular Volume 83.9 fL (83.0-100.0); Mean Platelet Volume 9.7 fL (9.4-12.4); Monocytes # 1.1 K/mcL (0.0-1.3); Monocytes % 9.5 %; Neutrophils # 7.1 K/mcL (1.6-8.9); Platelet Count 245 K/mcL (140-400); Red Blood Count 4.67 M/mcL (4.19-5.50); Red Cell Distribution Width 11.9 % (11.5-14.5); Segmented Neutrophils % 64.4 %; White Blood Count 11.1 K/mcL (4.3-11.1)
[2019-04-24 09:30] LABS: Alanine Aminotransferase 12 Units/L (7-52); Albumin 3.4 g/dL (3.5-5.7); Alkaline Phosphatase 54 Units/L (34-104); Aspartate Amino Transferase 12 Units/L (13-39); BUN/Creatinine Ratio 13 (6-26); Bilirubin,Total 1.2 mg/dL (0.3-1.0); Blood Urea Nitrogen 9 mg/dL (6-20); Calcium 8.5 mg/dL (8.6-10.3); Carbon Dioxide 27 mEq/L (23-29); Chloride 100 mEq/L (98-107); Globulin 1.7 g/dL (2.4-3.5); Glucose 90 mg/dL (70-105); Lipase 427 Units/L (11-82); Magnesium 1.6 mg/dL (1.6-2.6); Osmolality,Calculated 278 (280-300); Potassium 3.6 mEq/L (3.5-5.1); Sodium 135 mEq/L (136-145); Total Protein 5.1 g/dL (6.4-8.9); eGFR For African Americans > 60 (> 60); eGFR For Non-African Americans > 60 (> 60)
[2019-04-24] MEDS: Nicotine 21 MG PATCH.TD24 TD SCH (09:44)
[2019-04-24 11:01] VITALS: BP 129/95
[2019-04-24] MEDS ORDERED: Lidocaine -MPF 2% 2 ML VIAL ONE (11:13)
[2019-04-24] MEDS ORDERED: *HR* Propofol 200 MG/20 ML VIAL IVP ONE ×2 (11:13→11:23)
== END 2019-04-24 14:16 | disposition home or self-care (01) | DRG 438 ==
LOC: 3ANU 13:59 → EMEROOARM 13:59 → SUATTDRO 16:18 → 3ANU 17:41
PROVIDERS: ADMIT Internal Medicine; ATTEND Internal Medicine
PROC: ENDOEBX (2019-04-24 11:00)

== ENCOUNTER 2019-05-13 16:11 | Inpatient (IN) ==
[2019-05-13 17:54] LABS: Basophils % 0.3 %; Eosinophils # 0.1 K/mcL (0.0-0.6); Eosinophils % 0.5 %; Hematocrit 49.3 % (37.5-50.1); Hemoglobin 17.3 g/dL (12.9-16.9); Immature Granulocytes % 0.4 % (0-4); Lymphocytes # 1.8 K/mcL (0.6-4.6); Lymphocytes % 12.4 %; Mean Corpuscular HGB Conc 35.1 g/dL (31.6-35.5); Mean Corpuscular Hemoglobin 30.1 pg (28.0-33.3); Mean Corpuscular Volume 85.9 fL (83.0-100.0); Mean Platelet Volume 8.8 fL (9.4-12.4); Monocytes # 1.1 K/mcL (0.0-1.3); Monocytes % 7.9 %; Neutrophils # 11.1 K/mcL (1.6-8.9); Platelet Count 405 K/mcL (140-400); Red Blood Count 5.74 M/mcL (4.19-5.50); Red Cell Distribution Width 12.2 % (11.5-14.5); Segmented Neutrophils % 78.5 %; White Blood Count 14.2 K/mcL (4.3-11.1)
[2019-05-13 17:58] LABS: Blood Urea Nitrogen 8 mg/dL (6-20); Carbon Dioxide 28 mEq/L (23-29); Chloride 99 mEq/L (98-107); Glucose 117 mg/dL (70-105); Osmolality,Calculated 283 (280-300); Sodium 137 mEq/L (136-145)
[2019-05-13 18:56] LABS: BUN/Creatinine Ratio 11 (6-26); eGFR For African Americans > 60 (> 60); eGFR For Non-African Americans > 60 (> 60)
[2019-05-13] MEDS ORDERED: *HR* HYDROmorphone (PF) 1 MG/ML SYRINGE IVP ONE (18:58)
[2019-05-13] MEDS ORDERED: Ondansetron 4 MG/2 ML VIAL IVP ONE (18:58)
[2019-05-13] MEDS ORDERED: 0.9 % Sodium Chloride 1,000 ML IVC ONE (18:58)
[2019-05-13 20:55] LABS: Lipase 776 Units/L (11-82)
[2019-05-14] MEDS ORDERED: *HR* HYDROmorphone (PF) 1 MG/ML SYRINGE IVP ONE (00:52)
[2019-05-14] MEDS ORDERED: Ringers Solution, Lactated 1,000 ML IVC SCH (00:53)
[2019-05-14] MEDS ORDERED: Naloxone 0.4 MG/ML INJ IVP PRN (04:45)
[2019-05-14] MEDS ORDERED: D5% in 0.9% NACL w KCl 20 MEQ/1,000 ML MLS IVC SCH (05:15)
[2019-05-14] MEDS ORDERED: *HR* HYDROmorphone (PF) 1 MG/ML SYRINGE IVP PRN ×2 (05:34→10:55)
[2019-05-14] MEDS ORDERED: Ondansetron 4 MG/2 ML VIAL IVP PRN (05:35)
[2019-05-14] MEDS ORDERED: *HR* Heparin 5,000 UNIT/ML VIAL SQ SCH (06:00)
[2019-05-14 06:02] LABS: Basophils % 0.3 %; Eosinophils # 0.2 K/mcL (0.0-0.6); Eosinophils % 1.7 %; Hematocrit 43.4 % (37.5-50.1); Immature Granulocytes % 0.4 % (0-4); Lymphocytes # 2.2 K/mcL (0.6-4.6); Lymphocytes % 19.9 %; Mean Corpuscular HGB Conc 34.3 g/dL (31.6-35.5); Mean Corpuscular Hemoglobin 30.7 pg (28.0-33.3); Mean Corpuscular Volume 89.5 fL (83.0-100.0); Mean Platelet Volume 9.3 fL (9.4-12.4); Monocytes # 0.8 K/mcL (0.0-1.3); Monocytes % 7.4 %; Platelet Count 317 K/mcL (140-400); Red Blood Count 4.85 M/mcL (4.19-5.50); Red Cell Distribution Width 12.1 % (11.5-14.5); Segmented Neutrophils % 70.3 %; White Blood Count 11.3 K/mcL (4.3-11.1)
[2019-05-14 06:06] LABS: Hemoglobin 14.9 g/dL (12.9-16.9)
[2019-05-14 06:07] LABS: Bilirubin,Urine Negative (Negative); Blood,Urine Negative (Negative); Clarity,Urine Turbid (Clear); Color,Urine Yellow (Yellow); Glucose,Urine (UA) Normal (Normal); Ketones,Urine Negative (Negative); Leukocyte Esterase,Urine Negative (Negative); Nitrite,Urine Negative (Negative); PH,Urine 7.5 pH Units (5.0-8.0); Protein,Urine Negative (Neg-Trace); Specific Gravity,Urine 1.019 (1.010-1.025); Urobilinogen,Urine Normal (Normal)
[2019-05-14 06:08] LABS: INR 1.3; Prothrombin Time 14.5 Seconds (9.4-12.1)
[2019-05-14 06:09] LABS: Hyaline Casts,Urine None Seen per lpf (None-Few); RBC,Urine 15-30 per hpf (0-3); Squamous Epithelial Cell,Urine Many per lpf (None-Few); WBC,Urine 0-3 per hpf (0-3)
[2019-05-14 06:21] LABS: Alanine Aminotransferase 10 Units/L (7-52); Albumin 3.8 g/dL (3.5-5.7); Albumin/Globulin Ratio 1.8 (1.1-2.2); Alkaline Phosphatase 71 Units/L (34-104); Aspartate Amino Transferase 9 Units/L (13-39); BUN/Creatinine Ratio 11 (6-26); Bilirubin,Total 0.5 mg/dL (0.3-1.0); Blood Urea Nitrogen 8 mg/dL (6-20); Calcium 9.2 mg/dL (8.6-10.3); Carbon Dioxide 29 mEq/L (23-29); Chloride 101 mEq/L (98-107); Chol/HDL Ratio 6.4 (0-4.9); Cholesterol 116 mg/dL (< 200); Globulin 2.1 g/dL (2.4-3.5); Glucose 106 mg/dL (70-105); HDL Cholesterol 18 mg/dL (40-59); LDL Cholesterol,Calculated 73 mg/dL (0-99); Magnesium 1.8 mg/dL (1.6-2.6); Osmolality,Calculated 287 (280-300); Phosphorous 4.9 mg/dL (2.7-4.5); Sodium 139 mEq/L (136-145); Total Protein 5.9 g/dL (6.4-8.9); Triglycerides 127 mg/dL (< 150); eGFR For African Americans > 60 (> 60); eGFR For Non-African Americans > 60 (> 60)
[2019-05-14 06:25] LABS: Troponin I < 0.03 ng/mL (< 0.04)
[2019-05-14] MEDS ORDERED: Pantoprazole 40 MG VIAL IVP SCH ×2 (06:30→08:47)
[2019-05-14 06:34] LABS: Bacteria,Urine Few per hpf (None-Few); Yeast,Urine Moderate per hpf (None Seen)
[2019-05-14 09:26] LABS: Lipase 690 Units/L (11-82)
[2019-05-14 10:54] LABS: Hematocrit 41.9 % (37.5-50.1); Hemoglobin 14.4 g/dL (12.9-16.9)
[2019-05-14 12:11] LABS: Hematocrit 40.6 % (37.5-50.1); Hemoglobin 14.3 g/dL (12.9-16.9)
[2019-05-14] MEDS: Nicotine 21 MG PATCH.TD24 TD SCH (13:13)
[2019-05-14] MEDS: Ringers Solution, Lactated 1,000 ML IVC SCH ×2 (13:13→21:04)
[2019-05-14] MEDS: Pantoprazole 40 MG VIAL IVP SCH (17:22)
[2019-05-14 17:28] LABS: Hematocrit 41.5 % (37.5-50.1); Hemoglobin 14.6 g/dL (12.9-16.9)
[2019-05-14 21:11] LABS: Hematocrit 39.3 % (37.5-50.1)
[2019-05-15] MEDS: Pantoprazole 40 MG VIAL IVP SCH (05:09)
[2019-05-15] MEDS: Ringers Solution, Lactated 1,000 ML IVC SCH ×3 (05:09→23:18)
[2019-05-15 06:08] LABS: Basophils % 0.6 %; Eosinophils # 0.4 K/mcL (0.0-0.6); Eosinophils % 5.6 %; Hematocrit 38.3 % (37.5-50.1); Hemoglobin 13.2 g/dL (12.9-16.9); Immature Granulocytes % 0.3 % (0-4); Lymphocytes % 41.3 %; Mean Corpuscular HGB Conc 34.5 g/dL (31.6-35.5); Mean Corpuscular Hemoglobin 30.9 pg (28.0-33.3); Mean Corpuscular Volume 89.7 fL (83.0-100.0); Monocytes # 0.5 K/mcL (0.0-1.3); Monocytes % 7.3 %; Neutrophils # 3.2 K/mcL (1.6-8.9); Platelet Count 278 K/mcL (140-400); Red Blood Count 4.27 M/mcL (4.19-5.50); Red Cell Distribution Width 11.9 % (11.5-14.5); Segmented Neutrophils % 44.9 %; White Blood Count 7.1 K/mcL (4.3-11.1)
[2019-05-15 06:33] LABS: Alanine Aminotransferase 8 Units/L (7-52); Albumin 3.7 g/dL (3.5-5.7); Albumin/Globulin Ratio 1.9 (1.1-2.2); Alkaline Phosphatase 61 Units/L (34-104); Aspartate Amino Transferase 9 Units/L (13-39); BUN/Creatinine Ratio 9 (6-26); Bilirubin,Total 0.5 mg/dL (0.3-1.0); Blood Urea Nitrogen 6 mg/dL (6-20); Carbon Dioxide 31 mEq/L (23-29); Chloride 98 mEq/L (98-107); Glucose 89 mg/dL (70-105); Osmolality,Calculated 281 (280-300); Potassium 3.7 mEq/L (3.5-5.1); Sodium 137 mEq/L (136-145); Total Protein 5.7 g/dL (6.4-8.9); eGFR For African Americans > 60 (> 60); eGFR For Non-African Americans > 60 (> 60)
[2019-05-15] MEDS: Nicotine 21 MG PATCH.TD24 TD SCH (07:45)
[2019-05-16 05:31] LABS: Alanine Aminotransferase 8 Units/L (7-52); Albumin 3.8 g/dL (3.5-5.7); Albumin/Globulin Ratio 1.8 (1.1-2.2); Alkaline Phosphatase 61 Units/L (34-104); Aspartate Amino Transferase 10 Units/L (13-39); BUN/Creatinine Ratio 10 (6-26); Bilirubin,Total 0.3 mg/dL (0.3-1.0); Blood Urea Nitrogen 7 mg/dL (6-20); Calcium 9.1 mg/dL (8.6-10.3); Carbon Dioxide 29 mEq/L (23-29); Chloride 100 mEq/L (98-107); Globulin 2.1 g/dL (2.4-3.5); Glucose 85 mg/dL (70-105); Lipase 108 Units/L (11-82); Osmolality,Calculated 285 (280-300); Potassium 3.5 mEq/L (3.5-5.1); Sodium 139 mEq/L (136-145); Total Protein 5.9 g/dL (6.4-8.9); eGFR For African Americans > 60 (> 60); eGFR For Non-African Americans > 60 (> 60)
[2019-05-16] MEDS: Nicotine 21 MG PATCH.TD24 TD SCH (09:06)
[2019-05-16 15:27] VITALS: BP 108/67
== END 2019-05-16 19:16 | disposition home or self-care (01) | DRG 438 ==
LOC: EMEROOARM 16:11 → 3ANU 16:11
PROVIDERS: ADMIT Family Medicine; ATTEND Family Medicine

== ENCOUNTER 2019-06-14 06:08 | Inpatient (IN) ==
[2019-06-14] MEDS ORDERED: Ondansetron 4 MG/2 ML VIAL IVP ONE (06:25)
[2019-06-14] MEDS ORDERED: *HR* HYDROmorphone (PF) 1 MG/ML SYRINGE IVP ONE ×2 (06:25→08:04)
[2019-06-14] MEDS ORDERED: 0.9 % Sodium Chloride 1,000 ML IVC ONE (06:25)
[2019-06-14] MEDS ORDERED: Isovue-370 500 ML BOTTLE IVP ONE (06:31)
[2019-06-14] MEDS ORDERED: Isovue-370 500 ML BOTTLE PO ONE (06:42)
[2019-06-14 07:04] LABS: Bilirubin,Urine Negative (Negative); Blood,Urine Negative (Negative); Clarity,Urine Cloudy (Clear); Color,Urine Yellow (Yellow); Glucose,Urine (UA) Normal (Normal); Ketones,Urine Negative (Negative); Leukocyte Esterase,Urine Negative (Negative); Nitrite,Urine Negative (Negative); PH,Urine 6.5 pH Units (5.0-8.0); Protein,Urine Negative (Neg-Trace); Specific Gravity,Urine 1.025 (1.010-1.025); Urobilinogen,Urine Normal (Normal)
[2019-06-14 07:06] LABS: Bacteria,Urine None Seen per hpf (None-Few); Hyaline Casts,Urine None Seen per lpf (None-Few); RBC,Urine 0-3 per hpf (0-3); Squamous Epithelial Cell,Urine Moderate per lpf (None-Few); WBC,Urine 0-3 per hpf (0-3)
[2019-06-14 07:09] LABS: Basophils # 0.1 K/mcL (0.0-0.2); Basophils % 0.5 %; Eosinophils # 0.3 K/mcL (0.0-0.6); Eosinophils % 2.7 %; Hematocrit 49.9 % (37.5-50.1); Hemoglobin 17.7 g/dL (12.9-16.9); Immature Granulocytes % 0.3 % (0-4); Lymphocytes # 2.9 K/mcL (0.6-4.6); Lymphocytes % 22.8 %; Mean Corpuscular HGB Conc 35.5 g/dL (31.6-35.5); Mean Corpuscular Hemoglobin 30.8 pg (28.0-33.3); Mean Corpuscular Volume 86.9 fL (83.0-100.0); Mean Platelet Volume 9.1 fL (9.4-12.4); Monocytes # 0.9 K/mcL (0.0-1.3); Monocytes % 6.7 %; Neutrophils # 8.6 K/mcL (1.6-8.9); Platelet Count 320 K/mcL (140-400); Red Blood Count 5.74 M/mcL (4.19-5.50); Red Cell Distribution Width 11.9 % (11.5-14.5); White Blood Count 12.8 K/mcL (4.3-11.1)
[2019-06-14 07:27] LABS: Alanine Aminotransferase 35 Units/L (7-52); Albumin/Globulin Ratio 1.7 (1.1-2.2); Alkaline Phosphatase 107 Units/L (34-104); Aspartate Amino Transferase 18 Units/L (13-39); BUN/Creatinine Ratio 13 (6-26); Bilirubin,Direct 0.1 mg/dL (0.0-0.2); Bilirubin,Indirect 0.3 mg/dL (0.0-1.0); Bilirubin,Total 0.4 mg/dL (0.3-1.0); Blood Urea Nitrogen 11 mg/dL (6-20); Calcium 10.3 mg/dL (8.6-10.3); Carbon Dioxide 27 mEq/L (23-29); Chloride 98 mEq/L (98-107); Globulin 2.9 g/dL (2.4-3.5); Glucose 123 mg/dL (70-105); Lipase 69 Units/L (11-82); Osmolality,Calculated 287 (280-300); Potassium 4.1 mEq/L (3.5-5.1); Sodium 138 mEq/L (136-145); Total Protein 7.9 g/dL (6.4-8.9); eGFR For African Americans > 60 (> 60); eGFR For Non-African Americans > 60 (> 60)
[2019-06-14] MEDS ORDERED: *HR* Promethazine 25 MG/ML VIAL IVP ONE (08:31)
[2019-06-14] MEDS ORDERED: Promethazine 25 MG in 0.9 % Sodium Chloride 50 ML IVPB ONE (08:34)
[2019-06-14 08:46] LABS: Amylase 60 Units/L (29-103)
[2019-06-14] MEDS ORDERED: Piperacillin/Tazobactam 3.375 GM in 0.9 % Sodium Chloride Mini Bag 100 ML IVPB ONE (09:27)
[2019-06-14] MEDS ORDERED: 0.9 % Sodium Chloride 1,000 ML IV ONE (09:28)
[2019-06-14] MEDS: Ringers Solution, Lactated 1,000 ML IVC SCH ×2 (14:04→19:58)
[2019-06-14] MEDS: *HR* OxyCODONE Immed Rel 5 MG TABLET PO PRN (19:50)
[2019-06-14] MEDS: *HR* Promethazine 25 MG/ML VIAL IVP PRN (19:51)
[2019-06-15] MEDS: Ondansetron 4 MG/2 ML VIAL IVP PRN (00:18)
[2019-06-15 05:06] LABS: Basophils % 0.5 %; Eosinophils # 0.4 K/mcL (0.0-0.6); Eosinophils % 4.8 %; Hematocrit 46.9 % (37.5-50.1); Hemoglobin 16.5 g/dL (12.9-16.9); Immature Granulocytes % 0.4 % (0-4); Lymphocytes # 2.3 K/mcL (0.6-4.6); Lymphocytes % 30.3 %; Mean Corpuscular HGB Conc 35.2 g/dL (31.6-35.5); Mean Corpuscular Hemoglobin 30.6 pg (28.0-33.3); Mean Platelet Volume 8.8 fL (9.4-12.4); Monocytes # 0.6 K/mcL (0.0-1.3); Monocytes % 8.3 %; Neutrophils # 4.3 K/mcL (1.6-8.9); Platelet Count 286 K/mcL (140-400); Red Blood Count 5.39 M/mcL (4.19-5.50); Red Cell Distribution Width 11.9 % (11.5-14.5); Segmented Neutrophils % 55.7 %; White Blood Count 7.7 K/mcL (4.3-11.1)
[2019-06-15] MEDS: *HR* OxyCODONE Immed Rel 5 MG TABLET PO PRN (05:40)
[2019-06-15] MEDS: Ringers Solution, Lactated 1,000 ML IVC SCH ×2 (09:31→18:15)
[2019-06-15] MEDS ORDERED: *HR* HYDROmorphone (PF) 1 MG/ML SYRINGE IVP ONE ×2 (18:02→19:00)
[2019-06-15] MEDS ORDERED: *HR* LORazepam 2 MG/ML VIAL IVP STA (18:40)
[2019-06-15] MEDS ORDERED: *HR* LORazepam 0.5 MG TABLET PO PRN (20:31)
[2019-06-15] MEDS: D5% in 0.45% NACL 1,000 ML IVC SCH (21:21)
[2019-06-15] MEDS: Pantoprazole 40 MG VIAL IVP SCH (21:22)
[2019-06-15] MEDS: *HR* LORazepam 0.5 MG TABLET PO PRN (21:22)
[2019-06-15] MEDS: *HR* HYDROmorphone 20 MG/20 ML PCA IVC PRN (21:52)
[2019-06-16] MEDS: D5% in 0.45% NACL 1,000 ML IVC SCH ×2 (04:47→13:19)
[2019-06-16] MEDS: *HR* LORazepam 0.5 MG TABLET PO PRN (04:47)
[2019-06-16 06:09] LABS: Basophils # 0.1 K/mcL (0.0-0.2); Basophils % 0.3 %; Eosinophils # 0.1 K/mcL (0.0-0.6); Eosinophils % 0.7 %; Hematocrit 47.6 % (37.5-50.1); Hemoglobin 16.6 g/dL (12.9-16.9); Immature Granulocytes % 0.4 % (0-4); Lymphocytes % 12.6 %; Mean Corpuscular HGB Conc 34.9 g/dL (31.6-35.5); Mean Corpuscular Hemoglobin 31.2 pg (28.0-33.3); Mean Corpuscular Volume 89.5 fL (83.0-100.0); Mean Platelet Volume 8.9 fL (9.4-12.4); Monocytes # 1.4 K/mcL (0.0-1.3); Monocytes % 8.5 %; Neutrophils # 12.3 K/mcL (1.6-8.9); Platelet Count 283 K/mcL (140-400); Red Blood Count 5.32 M/mcL (4.19-5.50); Red Cell Distribution Width 11.7 % (11.5-14.5); Segmented Neutrophils % 77.5 %; White Blood Count 15.9 K/mcL (4.3-11.1)
[2019-06-16 06:43] LABS: Alanine Aminotransferase 94 Units/L (7-52); Albumin 4.3 g/dL (3.5-5.7); Albumin/Globulin Ratio 1.8 (1.1-2.2); Alkaline Phosphatase 107 Units/L (34-104); Amylase 74 Units/L (29-103); Aspartate Amino Transferase 30 Units/L (13-39); BUN/Creatinine Ratio 12 (6-26); Bilirubin,Total 0.5 mg/dL (0.3-1.0); Blood Urea Nitrogen 7 mg/dL (6-20); Calcium 9.3 mg/dL (8.6-10.3); Carbon Dioxide 25 mEq/L (23-29); Chloride 96 mEq/L (98-107); Globulin 2.4 g/dL (2.4-3.5); Glucose 176 mg/dL (70-105); Lipase 236 Units/L (11-82); Magnesium 1.6 mg/dL (1.6-2.6); Osmolality,Calculated 282 (280-300); Phosphorous 5.5 mg/dL (2.7-4.5); Potassium 4.2 mEq/L (3.5-5.1); Sodium 135 mEq/L (136-145); Total Protein 6.7 g/dL (6.4-8.9); eGFR For African Americans > 60 (> 60); eGFR For Non-African Americans > 60 (> 60)
[2019-06-16] MEDS: Pantoprazole 40 MG VIAL IVP SCH ×2 (08:01→21:19)
[2019-06-16] MEDS: *HR* HYDROmorphone 20 MG/20 ML PCA IVC PRN ×2 (08:14→21:19)
[2019-06-16] MEDS ORDERED: 0.9 % Sodium Chloride 500 ML IVC ONE (08:57)
[2019-06-16] MEDS ORDERED: *HR* HYDROmorphone 20 MG/20 ML PCA IVC PRN (12:31)
[2019-06-16] MEDS ORDERED: Lidocaine -MPF 2% 2 ML VIAL ONE (14:24)
[2019-06-16] MEDS ORDERED: *HR* Propofol 200 MG/20 ML VIAL IVP ONE (14:24)
[2019-06-17 05:57] LABS: Basophils % 0.2 %; Eosinophils # 0.1 K/mcL (0.0-0.6); Eosinophils % 1.1 %; Hemoglobin 16.9 g/dL (12.9-16.9); Immature Granulocytes % 0.3 % (0-4); Lymphocytes # 1.5 K/mcL (0.6-4.6); Lymphocytes % 12.2 %; Mean Corpuscular HGB Conc 35.2 g/dL (31.6-35.5); Mean Corpuscular Hemoglobin 30.6 pg (28.0-33.3); Mean Corpuscular Volume 86.8 fL (83.0-100.0); Mean Platelet Volume 8.9 fL (9.4-12.4); Monocytes # 1.5 K/mcL (0.0-1.3); Monocytes % 12.1 %; Neutrophils # 9.3 K/mcL (1.6-8.9); Platelet Count 324 K/mcL (140-400); Red Blood Count 5.53 M/mcL (4.19-5.50); Red Cell Distribution Width 11.8 % (11.5-14.5); Segmented Neutrophils % 74.1 %; White Blood Count 12.5 K/mcL (4.3-11.1)
[2019-06-17 06:25] LABS: Albumin 4.4 g/dL (3.5-5.7); Albumin/Globulin Ratio 1.7 (1.1-2.2); Bilirubin,Direct 0.4 mg/dL (0.0-0.2); Bilirubin,Indirect 1.4 mg/dL (0.0-1.0); Bilirubin,Total 1.8 mg/dL (0.3-1.0); Globulin 2.6 g/dL (2.4-3.5)
[2019-06-17] MEDS: Pantoprazole 40 MG VIAL IVP SCH ×2 (08:44→20:09)
[2019-06-17 11:58] LABS: Magnesium 1.5 mg/dL (1.6-2.6); Potassium 4.4 mEq/L (3.5-5.1)
[2019-06-17] MEDS ORDERED: D10% in Water 500 ML IVC PRN (12:21)
[2019-06-17] MEDS ORDERED: Lidocaine -MPF 1% 5 ML AMPUL INFILT ONE (12:48)
[2019-06-17] MEDS: D5% in 0.45% NACL 1,000 ML IVC SCH ×2 (13:23→18:50)
[2019-06-17] MEDS ORDERED: D5% in 0.45% NACL 1,000 ML IVC SCH (16:51)
[2019-06-17] MEDS ORDERED: Clinimix E 5%-15% SOLUTION 2,000 ML with MVI, adult with vitamin K 10 ML IVC SCH (17:00)
[2019-06-17] MEDS: Piperacillin/Tazobactam 3.375 GM in 0.9 % Sodium Chloride Mini Bag 100 ML IVPB SCH ×2 (17:09→23:45)
[2019-06-17] MEDS: Insulin LISPRO 300 UNITS/3 ML VIAL SQ SCH ×3 (18:13→23:55)
[2019-06-17] MEDS: *HR* HYDROmorphone 20 MG/20 ML PCA IVC PRN (20:21)
[2019-06-18] MEDS: Ondansetron 4 MG/2 ML VIAL IVP PRN (03:33)
[2019-06-18] MEDS: *HR* LORazepam 0.5 MG TABLET PO PRN (04:22)
[2019-06-18 04:47] LABS: Basophils % 0.2 %; Eosinophils # 0.1 K/mcL (0.0-0.6); Eosinophils % 0.7 %; Hematocrit 42.7 % (37.5-50.1); Immature Granulocytes % 0.4 % (0-4); Lymphocytes # 1.3 K/mcL (0.6-4.6); Lymphocytes % 11.8 %; Mean Corpuscular HGB Conc 34.7 g/dL (31.6-35.5); Mean Corpuscular Hemoglobin 30.8 pg (28.0-33.3); Mean Corpuscular Volume 88.8 fL (83.0-100.0); Mean Platelet Volume 8.7 fL (9.4-12.4); Monocytes # 1.1 K/mcL (0.0-1.3); Monocytes % 9.6 %; Neutrophils # 8.4 K/mcL (1.6-8.9); Platelet Count 265 K/mcL (140-400); Red Blood Count 4.81 M/mcL (4.19-5.50); Red Cell Distribution Width 11.6 % (11.5-14.5); Segmented Neutrophils % 77.3 %; White Blood Count 10.9 K/mcL (4.3-11.1)
[2019-06-18 04:49] LABS: Hemoglobin 14.8 g/dL (12.9-16.9)
[2019-06-18 04:53] LABS: Amylase 23 Units/L (29-103); Lipase 12 Units/L (11-82); Total Protein 6.2 g/dL (6.4-8.9)
[2019-06-18 04:55] LABS: BUN/Creatinine Ratio 16 (6-26); Blood Urea Nitrogen 9 mg/dL (6-20); Calcium 9.2 mg/dL (8.6-10.3); Carbon Dioxide 29 mEq/L (23-29); Chloride 95 mEq/L (98-107); Glucose 122 mg/dL (70-105); Magnesium 1.9 mg/dL (1.6-2.6); Osmolality,Calculated 278 (280-300); Phosphorous 3.6 mg/dL (2.7-4.5); Potassium 3.9 mEq/L (3.5-5.1); Sodium 134 mEq/L (136-145); eGFR For African Americans > 60 (> 60); eGFR For Non-African Americans > 60 (> 60)
[2019-06-18] MEDS: Insulin LISPRO 300 UNITS/3 ML VIAL SQ SCH ×5 (05:22→19:55)
[2019-06-18] MEDS: Piperacillin/Tazobactam 3.375 GM in 0.9 % Sodium Chloride Mini Bag 100 ML IVPB SCH ×2 (08:25→17:06)
[2019-06-18] MEDS: Pantoprazole 40 MG VIAL IVP SCH ×2 (08:25→20:19)
[2019-06-18] MEDS ORDERED: Clinimix E 5%-15% SOLUTION 2,000 ML with MVI, adult with vitamin K 10 ML IVC SCH (17:00)
[2019-06-18] MEDS: *HR* OxyCODONE Immed Rel 5 MG TABLET PO PRN (20:41)
[2019-06-19] MEDS: Piperacillin/Tazobactam 3.375 GM in 0.9 % Sodium Chloride Mini Bag 100 ML IVPB SCH ×3 (01:03→16:59)
[2019-06-19] MEDS: Insulin LISPRO 300 UNITS/3 ML VIAL SQ SCH ×6 (02:46→21:39)
[2019-06-19] MEDS: *HR* OxyCODONE Immed Rel 5 MG TABLET PO PRN ×4 (02:53→21:39)
[2019-06-19 05:11] LABS: Alanine Aminotransferase 26 Units/L (7-52); Albumin 3.3 g/dL (3.5-5.7); Albumin/Globulin Ratio 1.5 (1.1-2.2); Alkaline Phosphatase 76 Units/L (34-104); Aspartate Amino Transferase 9 Units/L (13-39); BUN/Creatinine Ratio 16 (6-26); Bilirubin,Total 1.6 mg/dL (0.3-1.0); Blood Urea Nitrogen 10 mg/dL (6-20); Calcium 8.9 mg/dL (8.6-10.3); Carbon Dioxide 28 mEq/L (23-29); Chloride 100 mEq/L (98-107); Globulin 2.2 g/dL (2.4-3.5); Glucose 96 mg/dL (70-105); Magnesium 1.7 mg/dL (1.6-2.6); Osmolality,Calculated 283 (280-300); Phosphorous 4.7 mg/dL (2.7-4.5); Potassium 3.4 mEq/L (3.5-5.1); Sodium 137 mEq/L (136-145); Total Protein 5.5 g/dL (6.4-8.9); eGFR For African Americans > 60 (> 60); eGFR For Non-African Americans > 60 (> 60)
[2019-06-19] MEDS: Acetaminophen 325 MG TABLET PO PRN ×2 (05:35→12:59)
[2019-06-19] MEDS: Pantoprazole 40 MG VIAL IVP SCH ×2 (08:39→21:39)
[2019-06-19] MEDS ORDERED: *HR* OxyCODONE Immed Rel 5 MG TABLET PO PRN (10:14)
[2019-06-19] MEDS ORDERED: Clinimix E 5%-15% SOLUTION 2,000 ML with MVI, adult with vitamin K 10 ML IVC SCH (17:00)
[2019-06-20] MEDS: Insulin LISPRO 300 UNITS/3 ML VIAL SQ SCH ×7 (01:05→23:54)
[2019-06-20] MEDS: Piperacillin/Tazobactam 3.375 GM in 0.9 % Sodium Chloride Mini Bag 100 ML IVPB SCH ×4 (01:08→23:54)
[2019-06-20] MEDS: *HR* OxyCODONE Immed Rel 5 MG TABLET PO PRN ×6 (02:02→23:53)
[2019-06-20] MEDS: Acetaminophen 325 MG TABLET PO PRN (04:05)
[2019-06-20 05:40] LABS: Basophils % 0.4 %; Eosinophils # 0.2 K/mcL (0.0-0.6); Eosinophils % 2.2 %; Hematocrit 39.2 % (37.5-50.1); Hemoglobin 14.2 g/dL (12.9-16.9); Immature Granulocytes % 0.2 % (0-4); Lymphocytes # 1.7 K/mcL (0.6-4.6); Lymphocytes % 19.4 %; Mean Corpuscular HGB Conc 36.2 g/dL (31.6-35.5); Mean Corpuscular Hemoglobin 30.9 pg (28.0-33.3); Mean Corpuscular Volume 85.4 fL (83.0-100.0); Mean Platelet Volume 8.3 fL (9.4-12.4); Monocytes # 0.8 K/mcL (0.0-1.3); Monocytes % 9.1 %; Neutrophils # 5.9 K/mcL (1.6-8.9); Platelet Count 331 K/mcL (140-400); Red Blood Count 4.59 M/mcL (4.19-5.50); Red Cell Distribution Width 11.6 % (11.5-14.5); Segmented Neutrophils % 68.7 %; White Blood Count 8.6 K/mcL (4.3-11.1)
[2019-06-20 05:57] LABS: BUN/Creatinine Ratio 14 (6-26); Blood Urea Nitrogen 10 mg/dL (6-20); Calcium 8.9 mg/dL (8.6-10.3); Carbon Dioxide 28 mEq/L (23-29); Chloride 101 mEq/L (98-107); Glucose 130 mg/dL (70-105); Magnesium 1.8 mg/dL (1.6-2.6); Osmolality,Calculated 289 (280-300); Phosphorous 4.7 mg/dL (2.7-4.5); Potassium 3.4 mEq/L (3.5-5.1); Sodium 139 mEq/L (136-145); eGFR For African Americans > 60 (> 60); eGFR For Non-African Americans > 60 (> 60)
[2019-06-20] MEDS: Pantoprazole 40 MG VIAL IVP SCH ×2 (08:02→20:00)
[2019-06-20] MEDS ORDERED: *HR* HYDROmorphone (PF) 1 MG/ML SYRINGE IVP ONE (08:22)
[2019-06-20] MEDS ORDERED: Clinimix E 5%-15% SOLUTION 2,000 ML with MVI, adult with vitamin K 10 ML, Potassium C... IVC SCH (17:00)
[2019-06-21] MEDS: *HR* OxyCODONE Immed Rel 5 MG TABLET PO PRN ×5 (03:56→21:51)
[2019-06-21] MEDS: Insulin LISPRO 300 UNITS/3 ML VIAL SQ SCH ×5 (04:02→21:36)
[2019-06-21 04:51] LABS: Albumin 3.6 g/dL (3.5-5.7); Albumin/Globulin Ratio 1.3 (1.1-2.2); Bilirubin,Direct 0.5 mg/dL (0.0-0.2); Bilirubin,Indirect 0.7 mg/dL (0.0-1.0); Bilirubin,Total 1.2 mg/dL (0.3-1.0); Globulin 2.7 g/dL (2.4-3.5); Total Protein 6.3 g/dL (6.4-8.9)
[2019-06-21 04:54] LABS: BUN/Creatinine Ratio 17 (6-26); Blood Urea Nitrogen 11 mg/dL (6-20); Calcium 9.2 mg/dL (8.6-10.3); Carbon Dioxide 25 mEq/L (23-29); Chloride 100 mEq/L (98-107); Glucose 128 mg/dL (70-105); Magnesium 1.8 mg/dL (1.6-2.6); Osmolality,Calculated 283 (280-300); Phosphorous 4.6 mg/dL (2.7-4.5); Potassium 3.5 mEq/L (3.5-5.1); Sodium 136 mEq/L (136-145); eGFR For African Americans > 60 (> 60); eGFR For Non-African Americans > 60 (> 60)
[2019-06-21] MEDS: Piperacillin/Tazobactam 3.375 GM in 0.9 % Sodium Chloride Mini Bag 100 ML IVPB SCH ×2 (08:13→15:13)
[2019-06-21] MEDS: Pantoprazole 40 MG VIAL IVP SCH ×2 (08:14→21:50)
[2019-06-21] MEDS: *HR* LORazepam 0.5 MG TABLET PO PRN ×2 (08:27→18:59)
[2019-06-21] MEDS: Acetaminophen 325 MG TABLET PO PRN (13:37)
[2019-06-21] MEDS ORDERED: *HR* HYDROmorphone (PF) 1 MG/ML SYRINGE IVP STA (14:14)
[2019-06-21] MEDS ORDERED: Acetaminophen 325 MG TABLET PO PRN (14:14)
[2019-06-21] MEDS ORDERED: Isovue-370 500 ML BOTTLE IVP ONE (14:15)
[2019-06-21] MEDS ORDERED: Clinimix E 5%-15% SOLUTION 2,000 ML with MVI, adult with vitamin K 10 ML, Potassium C... IVC SCH (17:00)
[2019-06-21] MEDS ORDERED: *HR* HYDROmorphone (PF) 1 MG/ML SYRINGE IVP ONE (18:11)
[2019-06-21] MEDS ORDERED: *HR* HYDROmorphone (PF) 1 MG/ML SYRINGE IVP PRN (22:30)
[2019-06-22] MEDS: Piperacillin/Tazobactam 3.375 GM in 0.9 % Sodium Chloride Mini Bag 100 ML IVPB SCH ×2 (00:35→08:08)
[2019-06-22] MEDS: *HR* LORazepam 0.5 MG TABLET PO PRN (00:38)
[2019-06-22] MEDS: Insulin LISPRO 300 UNITS/3 ML VIAL SQ SCH ×6 (01:34→20:54)
[2019-06-22] MEDS: *HR* OxyCODONE Immed Rel 5 MG TABLET PO PRN ×2 (01:51→06:17)
[2019-06-22] MEDS: Ondansetron 4 MG/2 ML VIAL IVP PRN (02:57)
[2019-06-22 04:53] LABS: Basophils % 0.2 %; Eosinophils # 0.1 K/mcL (0.0-0.6); Eosinophils % 0.7 %; Hematocrit 49.1 % (37.5-50.1); Immature Granulocytes % 0.4 % (0-4); Lymphocytes # 0.9 K/mcL (0.6-4.6); Lymphocytes % 6.9 %; Mean Corpuscular HGB Conc 34.6 g/dL (31.6-35.5); Mean Corpuscular Hemoglobin 30.6 pg (28.0-33.3); Mean Corpuscular Volume 88.3 fL (83.0-100.0); Mean Platelet Volume 8.3 fL (9.4-12.4); Monocytes % 7.3 %; Neutrophils # 11.2 K/mcL (1.6-8.9); Platelet Count 385 K/mcL (140-400); Red Blood Count 5.56 M/mcL (4.19-5.50); Red Cell Distribution Width 11.5 % (11.5-14.5); Segmented Neutrophils % 84.5 %
[2019-06-22 04:57] LABS: White Blood Count 13.3 K/mcL (4.3-11.1)
[2019-06-22 05:08] LABS: Magnesium 1.8 mg/dL (1.6-2.6); Phosphorous 4.5 mg/dL (2.7-4.5)
[2019-06-22 05:10] LABS: Alanine Aminotransferase 46 Units/L (7-52); Albumin 3.7 g/dL (3.5-5.7); Albumin/Globulin Ratio 1.2 (1.1-2.2); Alkaline Phosphatase 124 Units/L (34-104); Amylase 91 Units/L (29-103); Aspartate Amino Transferase 28 Units/L (13-39); BUN/Creatinine Ratio 19 (6-26); Bilirubin,Total 1.4 mg/dL (0.3-1.0); Blood Urea Nitrogen 13 mg/dL (6-20); Calcium 9.6 mg/dL (8.6-10.3); Carbon Dioxide 27 mEq/L (23-29); Chloride 98 mEq/L (98-107); Glucose 173 mg/dL (70-105); Lipase 85 Units/L (11-82); Osmolality,Calculated 284 (280-300); Sodium 135 mEq/L (136-145); Total Protein 6.7 g/dL (6.4-8.9); eGFR For African Americans > 60 (> 60); eGFR For Non-African Americans > 60 (> 60)
[2019-06-22] MEDS: *HR* Promethazine 25 MG/ML VIAL IVP PRN (06:20)
[2019-06-22] MEDS: Pantoprazole 40 MG VIAL IVP SCH ×2 (08:08→20:53)
[2019-06-22] MEDS ORDERED: 0.9 % Sodium Chloride 1,000 ML IVC ONE ×2 (09:14→17:25)
[2019-06-22] MEDS: 0.9 % Sodium Chloride 1,000 ML IVC SCH ×2 (10:51→20:52)
[2019-06-22] MEDS: *HR* HYDROmorphone 20 MG/20 ML PCA IVC PRN (11:13)
[2019-06-22] MEDS ORDERED: Clinimix E 5%-15% SOLUTION 2,000 ML with MVI, adult with vitamin K 10 ML IVC SCH (17:00)
[2019-06-22 21:18] LABS: Amylase,Peritoneal Fluid 18 Units/L (No Ref Range); Glucose,Peritoneal Fluid 150 mg/dL (No Ref Range); Total Protein,Peritoneal Fluid < 3.0 g/dL
[2019-06-22 21:39] LABS: RBC,Peritoneal Fluid 0.004 M/mcL
[2019-06-22 21:40] LABS: Appearance of Peritoneal Fl CLOUDY (Clear)
[2019-06-22 22:45] LABS: Basophils,Peritoneal Fluid 0 %; Eosinophils,Peritoneal Fluid 0 %
[2019-06-23] MEDS: Insulin LISPRO 300 UNITS/3 ML VIAL SQ SCH ×6 (00:53→21:09)
[2019-06-23 05:08] LABS: Basophils # 0.1 K/mcL (0.0-0.2); Basophils % 0.5 %; Eosinophils # 0.6 K/mcL (0.0-0.6); Eosinophils % 4.2 %; Hematocrit 44.8 % (37.5-50.1); Hemoglobin 15.5 g/dL (12.9-16.9); Immature Granulocytes % 0.5 % (0-4); Lymphocytes # 1.3 K/mcL (0.6-4.6); Lymphocytes % 9.7 %; Mean Corpuscular HGB Conc 34.6 g/dL (31.6-35.5); Mean Corpuscular Hemoglobin 30.6 pg (28.0-33.3); Mean Corpuscular Volume 88.5 fL (83.0-100.0); Mean Platelet Volume 8.8 fL (9.4-12.4); Monocytes # 1.5 K/mcL (0.0-1.3); Monocytes % 11.7 %; Neutrophils # 9.7 K/mcL (1.6-8.9); Platelet Count 346 K/mcL (140-400); Red Blood Count 5.06 M/mcL (4.19-5.50); Red Cell Distribution Width 11.6 % (11.5-14.5); Segmented Neutrophils % 73.4 %; White Blood Count 13.2 K/mcL (4.3-11.1)
[2019-06-23 05:23] LABS: Albumin 3.1 g/dL (3.5-5.7); Albumin/Globulin Ratio 1.2 (1.1-2.2); Bilirubin,Direct 0.6 mg/dL (0.0-0.2); Bilirubin,Indirect 0.7 mg/dL (0.0-1.0); Bilirubin,Total 1.3 mg/dL (0.3-1.0); Globulin 2.5 g/dL (2.4-3.5); Total Protein 5.6 g/dL (6.4-8.9)
[2019-06-23 06:05] LABS: BUN/Creatinine Ratio 25 (6-26); Blood Urea Nitrogen 14 mg/dL (6-20); Calcium 8.8 mg/dL (8.6-10.3); Chloride 101 mEq/L (98-107); Glucose 99 mg/dL (70-105); Magnesium 1.6 mg/dL (1.6-2.6); Osmolality,Calculated 279 (280-300); Phosphorous 3.8 mg/dL (2.7-4.5); Potassium 4.1 mEq/L (3.5-5.1); Sodium 134 mEq/L (136-145); eGFR For African Americans > 60 (> 60); eGFR For Non-African Americans > 60 (> 60)
[2019-06-23 06:25] LABS: Carbon Dioxide 26 mEq/L (23-29)
[2019-06-23] MEDS: Piperacillin/Tazobactam 3.375 GM in 0.9 % Sodium Chloride Mini Bag 100 ML IVPB SCH ×2 (09:53→17:54)
[2019-06-23] MEDS: Pantoprazole 40 MG VIAL IVP SCH ×2 (09:54→21:09)
[2019-06-23] MEDS: *HR* HYDROmorphone 20 MG/20 ML PCA IVC PRN (14:05)
[2019-06-23] MEDS ORDERED: Lidocaine -MPF 2% 2 ML VIAL ONE (14:16)
[2019-06-23] MEDS ORDERED: *HR* FentaNYL (PF) 100 MCG/2 ML VIAL ONE (14:17)
[2019-06-23] MEDS ORDERED: Lidocaine -MPF 4% 5 ML AMPUL ONE (14:24)
[2019-06-23] MEDS ORDERED: Indomethacin 50 MG SUPP.RECT RC ONE (14:41)
[2019-06-23] MEDS ORDERED: Ondansetron 4 MG/2 ML VIAL ONE (14:43)
[2019-06-23] MEDS ORDERED: Dexamethasone 4 MG/ML VIAL ONE (14:43)
[2019-06-23] MEDS ORDERED: *HR* PHENYLEPHRINE 1,000 MCG/10 ML SYRINGE IVP ONE (14:54)
[2019-06-23] MEDS ORDERED: Clinimix E 5%-15% SOLUTION 2,000 ML, Parenteral Amino Acid 10% 150 ML with MVI, adult ... IVC SCH (17:00)
[2019-06-23] MEDS: *HR* Promethazine 25 MG/ML VIAL IVP PRN (17:44)
[2019-06-24] MEDS: Piperacillin/Tazobactam 3.375 GM in 0.9 % Sodium Chloride Mini Bag 100 ML IVPB SCH ×3 (00:30→16:23)
[2019-06-24] MEDS: Insulin LISPRO 300 UNITS/3 ML VIAL SQ SCH ×6 (01:53→21:35)
[2019-06-24] MEDS: Ondansetron 4 MG/2 ML VIAL IVP PRN (04:47)
[2019-06-24 06:04] LABS: Basophils % 0.2 %; Eosinophils # 0.2 K/mcL (0.0-0.6); Eosinophils % 1.8 %; Hematocrit 40.2 % (37.5-50.1); Immature Granulocytes % 0.6 % (0-4); Lymphocytes # 1.6 K/mcL (0.6-4.6); Lymphocytes % 12.1 %; Mean Corpuscular HGB Conc 34.3 g/dL (31.6-35.5); Mean Corpuscular Volume 87.4 fL (83.0-100.0); Mean Platelet Volume 8.9 fL (9.4-12.4); Monocytes # 1.5 K/mcL (0.0-1.3); Monocytes % 11.6 %; Neutrophils # 9.6 K/mcL (1.6-8.9); Platelet Count 387 K/mcL (140-400); Red Cell Distribution Width 11.2 % (11.5-14.5); Segmented Neutrophils % 73.7 %; White Blood Count 13.1 K/mcL (4.3-11.1)
[2019-06-24 06:06] LABS: Hemoglobin 13.8 g/dL (12.9-16.9)
[2019-06-24 06:29] LABS: Alanine Aminotransferase 22 Units/L (7-52); Albumin/Globulin Ratio 1.2 (1.1-2.2); Alkaline Phosphatase 94 Units/L (34-104); Amylase 71 Units/L (29-103); Aspartate Amino Transferase 12 Units/L (13-39); BUN/Creatinine Ratio 31 (6-26); Bilirubin,Total 1.2 mg/dL (0.3-1.0); Blood Urea Nitrogen 17 mg/dL (6-20); Carbon Dioxide 28 mEq/L (23-29); Chloride 99 mEq/L (98-107); Globulin 2.6 g/dL (2.4-3.5); Glucose 87 mg/dL (70-105); Lipase 76 Units/L (11-82); Osmolality,Calculated 287 (280-300); Potassium 4.1 mEq/L (3.5-5.1); Sodium 138 mEq/L (136-145); Total Protein 5.6 g/dL (6.4-8.9); eGFR For African Americans > 60 (> 60); eGFR For Non-African Americans > 60 (> 60)
[2019-06-24 06:30] LABS: BUN/Creatinine Ratio 33 (6-26); Blood Urea Nitrogen 17 mg/dL (6-20); Carbon Dioxide 28 mEq/L (23-29); Chloride 100 mEq/L (98-107); Glucose 87 mg/dL (70-105); Magnesium 1.8 mg/dL (1.6-2.6); Osmolality,Calculated 285 (280-300); Phosphorous 4.6 mg/dL (2.7-4.5); Potassium 4.1 mEq/L (3.5-5.1); Sodium 137 mEq/L (136-145); Triglycerides 115 mg/dL (< 150); eGFR For African Americans > 60 (> 60); eGFR For Non-African Americans > 60 (> 60)
[2019-06-24] MEDS: Pantoprazole 40 MG VIAL IVP SCH ×2 (08:50→21:36)
[2019-06-24] MEDS ORDERED: *HR* OxyCODONE Immed Rel 5 MG TABLET PO PRN (15:59)
[2019-06-24] MEDS: 0.9 % Sodium Chloride 1,000 ML IVC SCH (16:23)
[2019-06-24] MEDS ORDERED: Clinimix E 5%-15% SOLUTION 2,000 ML, Parenteral Amino Acid 10% 150 ML with MVI, adult ... IVC SCH (17:00)
[2019-06-24 19:22] LABS: Fluid Source for Bilirubin PERITONEAL FL
[2019-06-25] MEDS: Insulin LISPRO 300 UNITS/3 ML VIAL SQ SCH ×6 (01:00→23:36)
[2019-06-25 05:21] LABS: Basophils % 0.3 %; Eosinophils # 0.6 K/mcL (0.0-0.6); Eosinophils % 5.3 %; Hematocrit 36.7 % (37.5-50.1); Hemoglobin 12.5 g/dL (12.9-16.9); Immature Granulocytes % 0.4 % (0-4); Lymphocytes # 1.4 K/mcL (0.6-4.6); Lymphocytes % 12.1 %; Mean Corpuscular HGB Conc 34.1 g/dL (31.6-35.5); Mean Platelet Volume 8.8 fL (9.4-12.4); Monocytes # 1.1 K/mcL (0.0-1.3); Monocytes % 9.4 %; Neutrophils # 8.5 K/mcL (1.6-8.9); Platelet Count 411 K/mcL (140-400); Red Blood Count 4.17 M/mcL (4.19-5.50); Red Cell Distribution Width 11.6 % (11.5-14.5); Segmented Neutrophils % 72.5 %; White Blood Count 11.7 K/mcL (4.3-11.1)
[2019-06-25 05:35] LABS: BUN/Creatinine Ratio 22 (6-26); Blood Urea Nitrogen 13 mg/dL (6-20); Calcium 8.2 mg/dL (8.6-10.3); Carbon Dioxide 27 mEq/L (23-29); Chloride 103 mEq/L (98-107); Glucose 98 mg/dL (70-105); Magnesium 1.7 mg/dL (1.6-2.6); Osmolality,Calculated 284 (280-300); Phosphorous 3.7 mg/dL (2.7-4.5); Potassium 3.8 mEq/L (3.5-5.1); Sodium 137 mEq/L (136-145); eGFR For African Americans > 60 (> 60); eGFR For Non-African Americans > 60 (> 60)
[2019-06-25] MEDS: Pantoprazole 40 MG VIAL IVP SCH (07:37)
[2019-06-25] MEDS ORDERED: *HR* OxyCODONE Immed Rel 5 MG TABLET PO PRN (11:28)
[2019-06-25] MEDS ORDERED: *HR* LORazepam 0.5 MG TABLET PO PRN (11:28)
[2019-06-25] MEDS ORDERED: Clinimix E 5%-15% SOLUTION 2,000 ML with MVI, adult with vitamin K 10 ML IVC SCH (17:00)
[2019-06-26 01:47] LABS: Basophils # 0.1 K/mcL (0.0-0.2); Basophils % 0.6 %; Eosinophils # 0.4 K/mcL (0.0-0.6); Eosinophils % 4.9 %; Hematocrit 38.1 % (37.5-50.1); Hemoglobin 12.8 g/dL (12.9-16.9); Immature Granulocytes % 0.5 % (0-4); Lymphocytes # 1.7 K/mcL (0.6-4.6); Lymphocytes % 19.6 %; Mean Corpuscular HGB Conc 33.6 g/dL (31.6-35.5); Mean Corpuscular Hemoglobin 30.1 pg (28.0-33.3); Mean Corpuscular Volume 89.6 fL (83.0-100.0); Mean Platelet Volume 8.7 fL (9.4-12.4); Monocytes # 0.9 K/mcL (0.0-1.3); Monocytes % 10.2 %; Neutrophils # 5.5 K/mcL (1.6-8.9); Platelet Count 412 K/mcL (140-400); Red Blood Count 4.25 M/mcL (4.19-5.50); Red Cell Distribution Width 11.6 % (11.5-14.5); Segmented Neutrophils % 64.2 %; White Blood Count 8.6 K/mcL (4.3-11.1)
[2019-06-26 02:07] LABS: BUN/Creatinine Ratio 21 (6-26); Blood Urea Nitrogen 12 mg/dL (6-20); Calcium 8.6 mg/dL (8.6-10.3); Carbon Dioxide 28 mEq/L (23-29); Chloride 106 mEq/L (98-107); Glucose 105 mg/dL (70-105); Magnesium 1.9 mg/dL (1.6-2.6); Osmolality,Calculated 288 (280-300); Phosphorous 3.8 mg/dL (2.7-4.5); Potassium 3.8 mEq/L (3.5-5.1); Sodium 139 mEq/L (136-145); eGFR For African Americans > 60 (> 60); eGFR For Non-African Americans > 60 (> 60)
[2019-06-26 05:34] VITALS: BP 127/82
[2019-06-26] MEDS: Insulin LISPRO 300 UNITS/3 ML VIAL SQ SCH (05:35)
== END 2019-06-26 15:00 | disposition home or self-care (01) | DRG 438 ==
LOC: EMEROOARM 06:08 → 3ANU 06:08
PROVIDERS: ADMIT Surgery; ATTEND Surgery
PROC: ENDOEBX (2019-06-16 14:15)